=== PATIENT | male | born 1980 | race Caucasian/White ===

== ENCOUNTER 2016-09-15 02:10 | Emergency (ER) | payer MEDICAID, OTHER ==
[~2016-09-15] VITALS: Ht 172.7 cm; Wt 80.8 kg
[~2016-09-15 02:10] MED LIST: CLIN1CAP6 PO; OXYC1SOL5 PO; PROT40TA PO
[2016-09-15 02:18] VITALS: BP 135/97; PULSE 83; RESP 18; TEMP 97.7; O2SAT 97
[2016-09-15] MEDS ORDERED: SODIUM CHLOR 0.9% 1000 ML INJ 1,000 ML IV SCH (02:42)
[2016-09-15] MEDS ORDERED: SODIUM CHLORIDE 0.9% FLUSH 5 ML FLUSH IVF PRN (02:45)
[2016-09-15] MEDS ORDERED: ONDANSETRON HCL 4 MG/2 ML VIAL IVP ONE (02:45)
[2016-09-15] MEDS ORDERED: PANTOPRAZOLE SODIUM 40 MG VIAL IV PUSH ONE (02:45)
[2016-09-15] MEDS ORDERED: HYDROmorphone HCL PF 1 MG/ML VIAL IV PUSH ONE ×2 (02:45→06:00)
[2016-09-15 03:00] VITALS: BP 178/110; PULSE 72; RESP 20; O2SAT 98
[2016-09-15 03:03] LABS: BLOOD, URINE TRACE (NEG); GLUCOSE,URINE NEG (NEG); KETONE, URINE NEG (NEG); NITRITE,URINE NEG (NEG)
[2016-09-15 03:09] LABS: URINE COLOR YELLOW (YELLW/STRAW); WBC, URINE 0-2 /hpf (0-5)
[2016-09-15 03:09] LABS: AUTOMATED NEUTROPHIL # 5.4 TH/MM3 (1.8-7.7); BASOPHIL # 0.2 TH/MM3 (0-0.2); BASOPHIL % 1.6 % (0.0-2.0); EOSINOPHIL # 0.2 TH/MM3 (0-0.4); EOSINOPHIL % 1.5 % (0.0-4.0); HEMATOCRIT 49.1 % (39.0-51.0); HEMO FLAGS DIFF FINAL; LYMPH % 36.9 % (9.0-44.0); LYMPHOCYTE # 3.7 TH/MM3 (1.0-4.8); MEAN CELL VOLUME 96.1 FL (80.0-100.0); MEAN CORPUSCULAR HEMOGLOBIN 31.8 PG (27.0-34.0); MEAN CORPUSCULAR HGB CONC 33.1 % (32.0-36.0); MONO % 6.1 % (0.0-8.0); NEUT % 53.9 % (16.0-70.0); PLATELET COUNT 213 TH/MM3 (150-450); RED BLOOD COUNT 5.11 MIL/MM3 (4.50-5.90); RED CELL DISTRIBUTION WIDTH 13.1 % (11.6-17.2); WHITE BLOOD COUNT 10.1 TH/MM3 (4.0-11.0)
[2016-09-15 03:10] VITALS: BP 178/110; PULSE 72; RESP 20; O2SAT 97
[2016-09-15 03:10] LABS: COMMENT (UR) CULT NOT INDICATED; CULTURE IF INDICATED CULT NOT INDICATED; RBC, URINE 0-3 /hpf (0-3); SQUAMOUS EPITHELIAL CELL URINE 0-5 /hpf (0-5)
[2016-09-15 03:11] LABS: CHLORIDE 106 MEQ/L (98-107); SODIUM (NA) 140 MEQ/L (136-145)
[2016-09-15 03:15] LABS: ANION GAP 12 MEQ/L (5-15); BICARBONATE 21.6 MEQ/L (21.0-32.0)
[2016-09-15 03:16] LABS: BLOOD UREA NITROGEN 15 MG/DL (7-18)
[2016-09-15 03:18] LABS: ALT (GPT) 41 U/L (12-78); AST (GOT) 21 U/L (15-37); GLOMERULAR FILTRATION RATE 101 ML/MIN (>89)
[2016-09-15 03:20] LABS: TOTAL BILIRUBIN ADULT 0.7 MG/DL (0.2-1.0)
[2016-09-15 03:21] LABS: ALKALINE PHOSPHATASE 90 U/L (45-117)
[2016-09-15] MEDS ORDERED: KETOROLAC TROMETHAMINE 30 MG/ML (IVP) VIAL IV PUSH ONE (03:45)
[2016-09-15 04:12] VITALS: BP 156/65; PULSE 64; RESP 20; O2SAT 96
--- NOTE | 2016-09-15 04:48 | PD ---
HPI Chief Complaint: Abdominal Pain Time Seen by Provider: 02:42 Travel History International Travel<30 days: No Contact w/Intl Traveler<30days: No Traveled to known affect area: No History of Present Illness HPI 35-year-old male presents to the emergency department for complaint of 2 days of worsening abdominal pain. Patient states he recently underwent surgery for a Meckel's diverticulum. Patient is supposed to follow-up with his surgeon but has not been able to do so as he hasn't had the finances. Patient is also identified to have sludge in the gallbladder and underwent a hida scan. Patient is also supposed to see his surgeon regarding possible cholecystectomy. Patient's had no fever or chills. Patient has had nausea and vomiting. No hematemesis no coffee-ground emesis. No report of melena or hematochezia. Patient has been hospitalized in the [facility] for similar gastroenteritis intractable abdominal pain and has been evaluated for possible gastroparesis-like symptoms. Patient was evaluated by gastroenterology and identified to be noncompliant with medications. Patient also reports he has chronic recurrent pancreatitis due to remote history of alcohol use but states he has not had any alcohol use since October 2014. Patient rates his pain as severe. [facility] Past Medical History Narrative Medical Anxiety depression abnormal EKG with cardiac catheterization 2013 pancreatitis pneumothorax chest tube thoracostomy migraines pneumonia sleep apnea tobacco use alcohol use substance use nursing notes reviewed Arthritis: No Asthma: Yes ( A CHILD) Autoimmune Disease: No Blood Disorders: No Anxiety: Yes Depression: Yes Heart Rhythm Problems: No Cancer: No Cardiac Catheterization: Yes (05/01/14) Cardiovascular Problems: Yes (CATH 2015 ABNORMAL EKG ) High Cholesterol: No Chemotherapy: No Chest Pain: Yes Congestive Heart Failure: No COPD: No Cerebrovascular Accident: No Diabetes: No Diminished Hearing: No Deep Vein Thrombosis: Yes (LEFT ARM 2012) Endocrine: No Gastrointestinal Disorders: Yes GERD: Yes (GASTRITIS, GASTROPARESES) Glaucoma: No Genitourinary: No Headaches: Yes (MIGRAINES) Hepatitis: No Hiatal Hernia: No Hypertension: Yes Immune Disorder: No Implanted Vascular Access Dvce: No Kidney Stones: No Musculoskeletal: Yes Neurologic: Yes Psychiatric: Yes Reproductive: No Respiratory: Yes (HX OF CHEST TUBE FOR COLLAPSED LUNG) Immunizations Current: No Migraines: Yes Myocardial Infarction: No Pancreatitis: Yes Pneumonia: Yes Radiation Therapy: No Renal Failure: No Seizures: No Sleep Apnea: Yes Thyroid Disease: No Ulcer: No Past Surgical History Abdominal Surgery: Yes (MECKEL'S DIVERTICULUM JUN 2016) AICD: No Appendectomy: No Arteriovenous Shunt: No Cardiac Surgery: Yes (CARDIAC CATH (04/23).) Cholecystectomy: No Ear Surgery: No Endocrine Surgery: No Eye Surgery: No Genitourinary Surgery: No Gynecologic Surgery: No Insulin Pump: No Joint Replacement: No Neurologic Surgery: No Oral Surgery: No Pacemaker: No Thoracic Surgery: Yes (1983) Other Surgery: Yes (5 YRS OLD CENTRAL LINE FOR 8 MONTHS W/HYPERTROPHY) Social History Alcohol Use: Yes (QUIT IN OCT 2015) Tobacco Use: Yes (1 PACK EVERY 3 DAYS ) Substance Use: Yes ("Marijuana occasionally.") Allergies-Medications (Allergen,Severity, Reaction): Coded Allergies: Penicillin (Verified Allergy, Severe, Hallucinations, 09/15/16) Morphine (Verified Allergy, Intermediate, FLUSHING/BURNING OF SKIN, 09/15/16 ) Reported Meds & Prescriptions Reported Meds & Active Scripts Active Protonix (Pantoprazole Sodium) 40 Mg Tab 40 Mg PO DAILY 14 Days Clindamycin Hcl (Clindamycin HCl) 300 Mg Cap 300 Mg PO Q6HR 7 Days Oxycodone/Acetaminophen 5 mg/325 mg 5 mg/325 mg Tab 1 Tab PO Q6H PRN Review of Systems Except as stated in HPI: all other systems reviewed are Neg General / Constitutional: No: Fever, Chills HENT: No: Congestion Cardiovascular: No: Chest Pain or Discomfort Respiratory: No: Shortness of Breath Gastrointestinal: Positive: Nausea, Vomiting, Abdominal Pain Genitourinary: No: Flank Pain Musculoskeletal: No: Myalgias, Arthralgias Skin: No Rash Neurologic: No: Weakness Psychiatric: No: Anxiety Hematologic/Lymphatic: No: Lymph Node Enlargement Physical Exam Narrative Well-developed well-nourished male in no acute distress no respiratory distress GENERAL: SKIN: Warm and dry. HEAD: Normocephalic. EYES: No scleral icterus. No injection or drainage. NECK: Supple, trachea midline. No JVD or lymphadenopathy. CARDIOVASCULAR: Regular rate and rhythm without murmurs, gallops, or rubs. RESPIRATORY: Breath sounds equal bilaterally. No accessory muscle use. GASTROINTESTINAL: Abdomen soft, diffusely tender to palpation without guarding or rebound, nondistended. MUSCULOSKELETAL: No cyanosis, or edema. BACK: Nontender without obvious deformity. No CVA tenderness. Data Data Last Documented VS Vital Signs Date Time Temp Pulse Resp B/P Pulse Ox O2 Delivery O2 Flow Rate FiO2 09/15/16 06:00 50 20 152/81 97 09/15/16 02:18 97.7 Orders Complete Blood Count With Diff (09/15/16 02:42) Comprehensive Metabolic Panel (09/15/16 02:42) Lipase (09/15/16 02:42) Urinalysis - C+S If Indicated (09/15/16 02:42) Ct Abd/Pel W Iv Contrast(Rout) (09/15/16 02:42) Iv Access Insert/Monitor (09/15/16 02:42) Ecg Monitoring (09/15/16 02:42) Oximetry (09/15/16 02:42) Ondansetron Inj (Zofran Inj) (09/15/16 02:45) Sodium Chlor 0.9% 1000 Ml Inj (Ns 1000 M (09/15/16 02:42) Sodium Chloride 0.9% Flush (Ns Flush) (09/15/16 02:45) Hydromorphone Pf Inj (Dilaudid Pf Inj) (09/15/16 02:45) Pantoprazole Inj (Protonix Inj) (09/15/16 02:45) Ketorolac Inj (Toradol Inj) (09/15/16 03:45) Hydromorphone Pf Inj (Dilaudid Pf Inj) (09/15/16 06:00) Iohexol 350 Inj (Omnipaque 350 Inj) (09/15/16 06:47) Labs Laboratory Tests Test 09/15/16 09/15/16 02:23 02:58 Urine Color YELLOW Urine Turbidity CLEAR Urine pH 6.0 Urine Specific Dobson 1.016 Urine Protein NEG mg/dL Urine Glucose (UA) NEG mg/dL Urine Ketones NEG mg/dL Urine Occult Blood TRACE Urine Nitrite NEG Urine Bilirubin NEG Urine Leukocyte Esterase NEG Urine RBC 0-3 /hpf Urine WBC 0-2 /hpf Urine Squamous Epithelial 0-5 /hpf Cells Urine Bacteria NONE /hpf Microscopic Urinalysis Comment CULT NOT INDICATED White Blood Count 10.1 TH/MM3 Red Blood Count 5.11 MIL/MM3 Hemoglobin 16.3 GM/DL Hematocrit 49.1 % Mean Corpuscular Volume 96.1 FL Mean Corpuscular Hemoglobin 31.8 PG Mean Corpuscular Hemoglobin 33.1 % Concent Red Cell Distribution Width 13.1 % Platelet Count 213 TH/MM3 Mean Platelet Volume 9.6 FL Neutrophils (%) (Auto) 53.9 % Lymphocytes (%) (Auto) 36.9 % Monocytes (%) (Auto) 6.1 % Eosinophils (%) (Auto) 1.5 % Basophils (%) (Auto) 1.6 % Neutrophils # (Auto) 5.4 TH/MM3 Lymphocytes # (Auto) 3.7 TH/MM3 Monocytes # (Auto) 0.6 TH/MM3 Eosinophils # (Auto) 0.2 TH/MM3 Basophils # (Auto) 0.2 TH/MM3 CBC Comment DIFF FINAL Differential Comment Sodium Level 140 MEQ/L Potassium Level 4.0 MEQ/L Chloride Level 106 MEQ/L Carbon Dioxide Level 21.6 MEQ/L Anion Gap 12 MEQ/L Blood Urea Nitrogen 15 MG/DL Creatinine 0.85 MG/DL Estimat Glomerular Filtration 101 ML/MIN Rate Random Glucose 118 MG/DL Calcium Level 9.3 MG/DL Total Bilirubin 0.7 MG/DL Aspartate Amino Transf 21 U/L (AST/SGOT) Alanine Aminotransferase 41 U/L (ALT/SGPT) Alkaline Phosphatase 90 U/L Total Protein 8.3 GM/DL Albumin 4.4 GM/DL Lipase 163 U/L [facility] Medical Decision Making Medical Screen Exam Complete: Yes Emergency Medical Condition: Yes Medical Record Reviewed: Yes Interpretation(s) CBC is automated differential values in normal range Complete metabolic panel values are all in normal range except for random glucose of 118 mildly elevated Lipase is in normal range at [address] a/p CONCLUSION: Negative CT abdomen/pelvis with contrast. Rob Mccollum MD on September 15, 2016 at 6:51 Board Certified Radiologist. This report was verified electronically. Differential Diagnosis Gastroenteritis electrolyte disturbance dehydration gastroparesis biliary colic cholecystitis colitis bowel obstruction renal colic Narrative Course IV access obtained specimens collected and sent for resulting Laboratory values are found to all be within normal range; patient will be sent to CAT scan for ongoing abdominal pain that seems mentally responsive to administered medications; CT scanner at this facility is broken therefore be transferred to [facility] for imaging study Diagnosis Primary Impression: Abdominal pain Qualified Code: R10.10 - Pain of upper abdomen Additional Impression: Gastroenteritis Referrals: Primary Care Physician call for appointment Patient Instructions: General Instructions Additional Instructions: Follow clear liquid diet for next 12-24 hours advance as tolerated to bland/ Didier diet Follow-up with your primary care physician Use Zofran as prescribed as needed for nausea and/or vomiting No work times one day May use acetaminophen/Tylenol as needed for fever 100.4F or greater or for minor pain Recommend [id number] Prilosec or Zantac per package directions 14 days Med/Other Pt SpecificInfo: Prescription(s) given Scripts Ondansetron Odt (Zofran Odt)4 Mg Tab4 Mg SL Q6HR PRN (Nausea/Vomiting) #10 TAB Ref 0 Prov:Camille Rome MD 09/15/16 Disposition: 01 DISCHARGE HOME Condition: Stable Camille Rome MD Sep 15, 2016 04:48
[2016-09-15 05:00] VITALS: BP 140/73; PULSE 58; RESP 20; O2SAT 97
[2016-09-15 06:00] VITALS: BP 152/81; PULSE 50; RESP 20; O2SAT 97
[2016-09-15] MEDS ORDERED: IOHEXOL 350 MG/ML 10 ML VIAL (for RAD DIAG) IV ONE (06:47)
--- NOTE | 2016-09-15 06:54 | RADRPT ---
EXAM DATE/TIME: 09/15/2016 06:33 [facility] COMPARISON: CT ABDOMEN & PELVIS W CONTRAST, June 19, 2015, 13:46. INDICATIONS : Right upper quadrant pain and right flank pain. IV CONTRAST: 80 cc Omnipaque 350 (iohexol) IV ORAL CONTRAST: No oral contrast ingested. RADIATION DOSE: 6.60 CTDIvol (mGy) MEDICAL HISTORY : Hypertension. Gastroparesis. Pancreatitis.gastritis, SURGICAL HISTORY : meckel's diverticulum ENCOUNTER: Initial ACUITY: 1 day PAIN SCALE: 10/10 LOCATION: Right upper quadrant flank TECHNIQUE: Volumetric scanning of the abdomen and pelvis was performed. Using automated exposure control and ad justment of the mA and/or kV according to patient size, radiation dose was kept as low as reasonably achievable to obtain optimal diagnostic quality images. FINDINGS: LOWER LUNGS: The visualized lower lungs are clear. LIVER: Homogeneous density without lesion. There is no dilation of the biliary tree. No calcified gallston es. SPLEEN: Normal size without lesion. PANCREAS: Within normal limits. KIDNEYS: Normal in size and shape. There is no mass, stone or hydronephrosis. ADRENAL GLANDS: Within normal limits. VASCULAR: There is no aortic aneurysm. BOWEL/MESENTERY: The stomach, small bowel, and colon demonstrate no acute abnormality. The appendix is identified in the right lower quadrant and has a normal appearance. There is no free intraperitoneal air or fluid. ABDOMINAL WALL: Within normal limits. RETROPERITONEUM: There is no lymphadenopathy. BLADDER: No wall thickening or mass. REPRODUCTIVE: Within normal limits. INGUINAL: There is no lymphadenopathy or hernia. MUSCULOSKELETAL: Within normal limits for patient age. CONCLUSION: Negative CT abdomen/pelvis with contrast. Rob Mccollum MD on September 15, 2016 at 6:51 Board Certified Radiologist. This report was verified electronically.
[2016-09-15] MEDS ORDERED: ZOFR4TAB3 SL (07:06)
== END 2016-09-15 07:35 | disposition home or self-care (01) ==
LOC: PHED 02:10
DX: R10.10 Upper abdominal pain, unspecified (principal); K52.9 Noninfective gastroenteritis and colitis, unspecified; K21.9 Gastro-esophageal reflux disease without esophagitis; I10 Essential (primary) hypertension; K85.90 Acute pancreatitis without necrosis or infection, unspecified; F17.210 Nicotine dependence, cigarettes, uncomplicated; G47.30 Sleep apnea, unspecified; Z86.718 Personal history of other venous thrombosis and embolism
CPT/HCPCS: 74177; 80053; 81001; 83690; 85025; 96361; 96374; 96375; 96376; 99284; C9113; J1170; J1885; J2405; J7030; Q9967

== ENCOUNTER 2017-05-23 01:24 | Emergency (ER) | payer MEDICAID ==
[~2017-05-23] VITALS: Ht 172.7 cm; Wt 78.8 kg
[~2017-05-23 01:24] MED LIST changes: +ZOFR4TAB3 SL
[2017-05-23 01:36] VITALS: BP 185/87; PULSE 92; RESP 20; TEMP 97.8
[2017-05-23 01:40] VITALS: BP 169/85; PULSE 84; RESP 20; O2SAT 95
--- NOTE | 2017-05-23 01:53 | PD ---
HPI Chief Complaint: Chest Pain Time Seen by Provider: 01:52 Travel History International Travel<30 days: No Contact w/Intl Traveler<30days: No Traveled to known affect area: No History of Present Illness HPI Patient is a 36-year-old male with a history of recurrent pancreatitis presents emergency Department with "chest pain" which she localizes the right mid abdomen. Patient states been going on for the past 3-4 hours. States it feels like his pancreatitis is flared up on him. Denies any diarrhea or constipation. Patient states he has a history of gastritis as well. States normally he takes erythromycin Zofran Lortab and omeprazole at home but he's been out of all of his medications. States in addition he usually takes sucralfate when it flares. States the pain is sharp nonradiating associated with nausea and nonbilious nonbloody vomiting. PFSH Past Medical History Arthritis: No Asthma: Yes ( A CHILD) Autoimmune Disease: No Blood Disorders: No Anxiety: Yes Depression: Yes Heart Rhythm Problems: No Cancer: No Cardiac Catheterization: Yes (05/01/14) Cardiovascular Problems: Yes (CATH 2015 ABNORMAL EKG ) High Cholesterol: No Chemotherapy: No Chest Pain: Yes Congestive Heart Failure: No COPD: No Cerebrovascular Accident: No Diabetes: No Diminished Hearing: No Deep Vein Thrombosis: Yes (LEFT ARM 2012) Endocrine: No Gastrointestinal Disorders: Yes GERD: Yes (GASTRITIS, GASTROPARESES) Glaucoma: No Genitourinary: No Headaches: Yes (MIGRAINES) Hepatitis: No Hiatal Hernia: No Hypertension: Yes Immune Disorder: No Implanted Vascular Access Dvce: No Kidney Stones: No Musculoskeletal: Yes Neurologic: Yes Psychiatric: Yes Reproductive: No Respiratory: Yes (HX OF CHEST TUBE FOR COLLAPSED LUNG) Immunizations Current: No Migraines: Yes Myocardial Infarction: No Pancreatitis: Yes Pneumonia: Yes Radiation Therapy: No Renal Failure: No Seizures: No Sleep Apnea: Yes Thyroid Disease: No Ulcer: No Past Surgical History Abdominal Surgery: Yes (MECKEL'S DIVERTICULUM JUN 2016) AICD: No Appendectomy: No Arteriovenous Shunt: No Cardiac Surgery: Yes (CARDIAC CATH (04/23).) Cholecystectomy: No Ear Surgery: No Endocrine Surgery: No Eye Surgery: No Genitourinary Surgery: No Gynecologic Surgery: No Insulin Pump: No Joint Replacement: No Neurologic Surgery: No Oral Surgery: No Pacemaker: No Thoracic Surgery: Yes (1983) Other Surgery: Yes (5 YRS OLD CENTRAL LINE FOR 8 MONTHS W/HYPERTROPHY) Social History Alcohol Use: Yes (QUIT IN OCT 2015) Tobacco Use: Yes (1 PACK EVERY 3 DAYS ) Substance Use: Yes ("Marijuana occasionally.") Allergies-Medications (Allergen,Severity, Reaction): Coded Allergies: penicillin G (Verified Allergy, Severe, Hallucinations, 05/23/17) morphine (Verified Allergy, Intermediate, FLUSHING/BURNING OF SKIN, ) Reported Meds & Prescriptions Reported Meds & Active Scripts Active Sucralfate 1 Gram Tab 1 Gm PO TID on empty stomach Omeprazole 40 Mg Cap 40 Mg PO DAILY Zofran Odt (Ondansetron Odt) 4 Mg Tab 4 Mg SL Q6HR PRN Erythromycin Base 250 Mg Tab 250 Mg PO TIDAC 7 Days Zofran Odt (Ondansetron Odt) 4 Mg Tab 4 Mg SL Q6HR PRN Review of Systems Except as stated in HPI: all other systems reviewed are Neg Physical Exam Narrative GENERAL: Well-developed well-nourished minimal discomfort, nontoxic appearance. SKIN: Focused skin assessment warm/dry. HEAD: Atraumatic. Normocephalic. EYES: Pupils equal and round. No scleral icterus. No injection or drainage. ENT: No nasal bleeding or discharge. Mucous membranes pink and moist. NECK: Trachea midline. No JVD. CARDIOVASCULAR: Regular rate and rhythm. No murmur appreciated. RESPIRATORY: No accessory muscle use. Clear to auscultation. Breath sounds equal bilaterally. GASTROINTESTINAL: Abdomen soft, non-tender, nondistended. Hepatic and splenic margins not palpable. No rebound no percussive tenderness, normal active bowel sounds. MUSCULOSKELETAL: No obvious deformities. No clubbing. No cyanosis. No edema. NEUROLOGICAL: Awake and alert. No obvious cranial nerve deficits. Motor grossly within normal limits. Normal speech. PSYCHIATRIC: Appropriate mood and affect; insight and judgment normal. Data Data Last Documented VS Vital Signs Date Time Temp Pulse Resp B/P (MAP) Pulse Ox O2 Delivery O2 Flow Rate FiO2 05/23/17 04:12 60 20 144/83 (103) 100 05/23/17 03:39 Room Air 05/23/17 01:36 97.8 Orders Orders Chest, Pa & Lat (05/23/17 ) Electrocardiogram (05/23/17 ) Ckmb (Isoenzyme) Profile (05/23/17 01:52) Complete Blood Count With Diff (05/23/17 01:52) Comprehensive Metabolic Panel (05/23/17 01:52) Magnesium (Mg) (05/23/17 01:52) Prothrombin Time / Inr (Pt) (05/23/17 01:52) Act Partial Throm Time (Ptt) (05/23/17 01:52) Troponin I (05/23/17 01:52) Ecg Monitoring (05/23/17 01:52) Bilateral Bp Monitoring (05/23/17 01:52) Iv Access Insert/Monitor (05/23/17 01:52) Oximetry (05/23/17 01:52) Oxygen Administration (05/23/17 01:52) Sodium Chloride 0.9% Flush (Ns Flush) (05/23/17 02:00) Ketorolac Inj (Toradol Inj) (05/23/17 02:00) Ondansetron Inj (Zofran Inj) (05/23/17 02:00) Abdomen, Upright Only (05/23/17 ) Lipase (05/23/17 01:52) Al-Mag Hy-Si 40-40-4 Mg/Ml Liq (Mag-Al P (05/23/17 02:45) Lidocaine 2% Viscous (Xylocaine 2% Visco (05/23/17 02:45) Promethazine Inj (Phenergan Inj) (05/23/17 02:45) CKMB (05/23/17 02:20) CKMB% (05/23/17 02:20) Labs Laboratory Tests Test 05/23/17 02:20 White Blood Count 9.4 TH/MM3 Red Blood Count 4.72 MIL/MM3 Hemoglobin 15.6 GM/DL Hematocrit 45.3 % Mean Corpuscular Volume 96.0 FL Mean Corpuscular Hemoglobin 33.1 PG Mean Corpuscular Hemoglobin Concent 34.5 % Red Cell Distribution Width 13.0 % Platelet Count 184 TH/MM3 Mean Platelet Volume 9.7 FL Neutrophils (%) (Auto) 54.1 % Lymphocytes (%) (Auto) 35.1 % Monocytes (%) (Auto) 7.3 % Eosinophils (%) (Auto) 0.7 % Basophils (%) (Auto) 2.8 % Neutrophils # (Auto) 5.0 TH/MM3 Lymphocytes # (Auto) 3.3 TH/MM3 Monocytes # (Auto) 0.7 TH/MM3 Eosinophils # (Auto) 0.1 TH/MM3 Basophils # (Auto) 0.3 TH/MM3 CBC Comment DIFF FINAL Differential Comment Prothrombin Time 10.9 SEC Prothromb Time International Ratio 1.0 RATIO Activated Partial Thromboplast Time 25.7 SEC Blood Urea Nitrogen 11 MG/DL Creatinine 0.90 MG/DL Random Glucose 87 MG/DL Total Protein 8.1 GM/DL Albumin 4.3 GM/DL Calcium Level 9.1 MG/DL Magnesium Level 2.3 MG/DL Alkaline Phosphatase 84 U/L Aspartate Amino Transf (AST/SGOT) 18 U/L Alanine Aminotransferase (ALT/SGPT) 32 U/L Total Bilirubin 0.4 MG/DL Sodium Level 139 MEQ/L Potassium Level 3.8 MEQ/L Chloride Level 105 MEQ/L Carbon Dioxide Level 24.0 MEQ/L Anion Gap 10 MEQ/L Estimat Glomerular Filtration Rate 94 ML/MIN Total Creatine Kinase 133 U/L Creatine Kinase MB 2.2 NG/ML Troponin I LESS THAN 0.02 NG/ML Lipase 133 U/L MDM Medical Decision Making Medical Screen Exam Complete: Yes Emergency Medical Condition: Yes Differential Diagnosis Acute on chronic abdominal pain, gastritis, pancreatitis, ACS highly unlikely. Narrative Course Patient is a 36-year-old male presents emergency Department with abdominal pain. He told triage she was actually having chest pain but one question about this he states she's not actually having any chest pain. Initial workup CBC CMP and lipase troponin EKG chest x-ray and abdominal x-ray are reassuring. He was given multiple doses of Zofran, Phenergan, IV fluids. He is feeling better. I prescribed him multiple medications to go home with. He is stable for discharge. Discussed follow-up with a arson investigator and return to ED criteria. Diagnosis Primary Impression: Abdominal pain Qualified Codes: R10.84 - Generalized abdominal pain Referrals: Shahab Lazo MD [facility] Med/Other Pt SpecificInfo: Prescription(s) given Scripts Sucralfate (Sucralfate) 1 Gram Tab 1 GM PO TID for Duodenal ulcer, #90 TAB 0 Refills on empty stomach Prov: Jose Marte MD 9/13/17 Omeprazole (Omeprazole) 40 Mg Cap 40 MG PO DAILY, #30 CAP 0 Refills Prov: Jose aMrte MD 05/23/17 Ondansetron Odt (Zofran Odt) 4 Mg Tab 4 MG SL Q6HR Y for Nausea/Vomiting, #3020 TAB 0 Refills Prov: Jose Marte MD 05/23/17 Erythromycin Base (Erythromycin Base) 250 Mg Tab 250 MG PO TIDAC for Infection for 7 Days, TAB 0 Refills Prov: Jose Marte MD 05/23/17 Disposition: 01 DISCHARGE HOME Condition: Stable Jose Marte MD May 23, 2017 01:53
[2017-05-23] MEDS ORDERED: SODIUM CHLORIDE 0.9% FLUSH 10 ML FLUSH IVF PRN (02:00)
[2017-05-23] MEDS ORDERED: KETOROLAC TROMETHAMINE 30 MG/ML (IVP) VIAL IV PUSH ONE (02:00)
[2017-05-23] MEDS ORDERED: ONDANSETRON HCL 4 MG/2 ML VIAL IV PUSH ONE (02:00)
--- NOTE | 2017-05-23 02:08 | RADRPT ---
EXAM DATE/TIME: 05/23/2017 01:54 [facility] COMPARISON: CHEST PA & LAT, November 05, 2014, 14:40. INDICATIONS : Chest pain. MEDICAL HISTORY : Pancreatitis. Gastroesophageal reflux disease. SURGICAL HISTORY : None. ENCOUNTER: Initial ACUITY: 1 day PAIN SCORE: 8/10 LOCATION: Bilateral chest FINDINGS: PA and lateral views of the chest demonstrate the lungs to be symmetrically aerated without evidence of mass, infiltrate or effusion. The cardiomediastinal contours are unremarkable. Osseous structure s are intact. CONCLUSION: No acute disease. No significant change has occurred. Jc Pike MD on May 23, 2017 at 2:06 Board Certified Radiologist. This report was verified electronically.
--- NOTE | 2017-05-23 02:10 | RADRPT ---
EXAM DATE/TIME: 05/23/2017 01:58 [facility] COMPARISON: ABDOMEN UPRIGHT ONLY, November 07, 2014, 22:49. INDICATIONS : Upper abdominal pain. MEDICAL HISTORY : Pancreatitis. Gastroesophageal reflux disease. SURGICAL HISTORY : None. ENCOUNTER: Initial ACUITY: 1 day PAIN SCORE: 8/10 LOCATION: Bilateral upper quadrant FINDINGS: A single erect view of the abdomen demonstrates the lower lungs to be clear. No evidence of free int raperitoneal gas. The visualized bowel loops are unremarkable. CONCLUSION: 1. No acute findings. Jc Pike MD on May 23, 2017 at 2:07 Board Certified Radiologist. This report was verified electronically.
[2017-05-23 02:26] LABS: BASOPHIL # 0.3 TH/MM3 (0-0.2); BASOPHIL % 2.8 % (0.0-2.0); EOSINOPHIL # 0.1 TH/MM3 (0-0.4); EOSINOPHIL % 0.7 % (0.0-4.0); HEMATOCRIT 45.3 % (39.0-51.0); LYMPH % 35.1 % (9.0-44.0); LYMPHOCYTE # 3.3 TH/MM3 (1.0-4.8); MEAN CORPUSCULAR HEMOGLOBIN 33.1 PG (27.0-34.0); MEAN CORPUSCULAR HGB CONC 34.5 % (32.0-36.0); MONO % 7.3 % (0.0-8.0); NEUT % 54.1 % (16.0-70.0); PLATELET COUNT 184 TH/MM3 (150-450); RED BLOOD COUNT 4.72 MIL/MM3 (4.50-5.90); WHITE BLOOD COUNT 9.4 TH/MM3 (4.0-11.0)
[2017-05-23 02:28] VITALS: BP 108/85; PULSE 64; RESP 20; O2SAT 100
[2017-05-23 02:40] LABS: HEMO FLAGS DIFF FINAL
[2017-05-23 02:42] LABS: CHLORIDE 105 MEQ/L (98-107); POTASSIUM 3.8 MEQ/L (3.5-5.1); SODIUM (NA) 139 MEQ/L (136-145)
[2017-05-23] MEDS ORDERED: PROMETHAZINE INJ 25 MG/ML VIAL IM ONE (02:45)
[2017-05-23] MEDS ORDERED: LIDOCAINE VISCOUS 2% SOLN 15 ML UDC PO ONE (02:45)
[2017-05-23] MEDS ORDERED: ALUMINUM/MAGNESIUM/SIMETH 30 ML CUP PO ONE (02:45)
[2017-05-23 02:46] LABS: ANION GAP 10 MEQ/L (5-15); BLOOD UREA NITROGEN 11 MG/DL (7-18); MAGNESIUM 2.3 MG/DL (1.5-2.5)
[2017-05-23 02:49] LABS: ALT (GPT) 32 U/L (12-78); AST (GOT) 18 U/L (15-37); GLOMERULAR FILTRATION RATE 94 ML/MIN (>89)
[2017-05-23 02:50] LABS: TOTAL BILIRUBIN ADULT 0.4 MG/DL (0.2-1.0)
[2017-05-23 02:52] LABS: ALKALINE PHOSPHATASE 84 U/L (45-117); CREATINE KINASE 133 U/L (39-308)
[2017-05-23 02:56] LABS: APTT (PATIENT) 25.7 SEC (24.3-30.1); PROTHROMBIN TIME - PATIENT 10.9 SEC (9.8-11.6)
[2017-05-23 03:04] LABS: CKMB 2.2 NG/ML (0.5-3.6)
[2017-05-23 03:39] VITALS: BP_SYST 119; BP_SYST 125; BP_DIAS 72; BP_DIAS 83; PULSE 60; RESP 22; O2SAT 99
[2017-05-23] MEDS ORDERED: ERYT250T13 PO (04:01)
[2017-05-23] MEDS ORDERED: SUCR1TAB PO (04:01)
[2017-05-23] MEDS ORDERED: OMEP40CA2 PO (04:01)
[2017-05-23] MEDS ORDERED: ZOFR4TAB3 SL (04:01)
[2017-05-23 04:12] VITALS: BP 144/83
--- NOTE | 2017-05-23 21:23 | EKG ---
Date Performed: 05/23/2017 Time Performed: 01:40:10 PTAGE: 36 years EKG: Sinus rhythm ST ELEVATION, PROBABLY EARLY REPOLARIZATION NONSPECIFIC ST & T-WAVE ABNORMALITY BORDERLINE ECG PREVIOUS TRACING : 05/03/2016 11.53 Compared to prior tracing no significant change DOCTOR: Theresa Cortes Interpretating Date/Time 05/23/2017 21:21:50
== END 2017-05-23 04:39 | disposition home or self-care (01) ==
LOC: PHED 01:24
DX: R10.84 Generalized abdominal pain (principal); R11.2 Nausea with vomiting, unspecified; R94.31 Abnormal electrocardiogram [ECG] [EKG]; I10 Essential (primary) hypertension; G47.30 Sleep apnea, unspecified; F17.200 Nicotine dependence, unspecified, uncomplicated; Z87.19 Personal history of other diseases of the digestive system; Z87.09 Personal history of other diseases of the respiratory system; Z86.59 Personal history of other mental and behavioral disorders; Z86.79 Personal history of other diseases of the circulatory system; Z86.718 Personal history of other venous thrombosis and embolism; Z87.39 Personal history of other diseases of the musculoskeletal system and connective tissue; Z86.69 Personal history of other diseases of the nervous system and sense organs
CPT/HCPCS: 71020; 74000; 80053; 82550; 82552; 83690; 83735; 84484; 85025; 85610; 85730; 93005; 96374; 96375; 99285; J1885; J2405; J2550

== ENCOUNTER 2017-06-08 19:08 | Emergency (ER) | payer SELFPAY ==
[~2017-06-08 19:08] MED LIST changes: -CLIN1CAP6 PO; +ERYT250T13 PO; +OMEP40CA2 PO; -OXYC1SOL5 PO; -PROT40TA PO; +SUCR1TAB PO
[2017-06-08 19:09] VITALS: BP 142/79; PULSE 78; RESP 16; TEMP 97.9; O2SAT 98
[2017-06-08] MEDS ORDERED: SODIUM CHLORIDE 0.9% FLUSH 10 ML FLUSH IVF PRN (22:00)
[2017-06-08] MEDS ORDERED: ASPIRIN 325 MG TAB PO ONE (22:00)
--- NOTE | 2017-06-08 22:03 | PD ---
HPI Chief Complaint: Syncope/Near-Syncope Time Seen by Provider: 21:56 Travel History International Travel<30 days: No Contact w/Intl Traveler<30days: No Traveled to known affect area: No History of Present Illness HPI 36-year-old male presents to the emergency department for evaluation after having a syncopal episode at work earlier today. Patient states he went out to take a smoking break and woke up on the ground. Patient states other employees told him he "flopped around like a fish". Patient states he has never had any seizure or seizure-like activity. Patient now is complaining of chest tightness , dry cough, hematoma to the right parietal aspect of the skull. Patient denies any fever, chills, hematuria, dysuria. Patient states he has a history of gastritis and is chronically nauseous and vomits frequently. Patient denies any constipation or diarrhea. PFSH Past Medical History Arthritis: No Asthma: Yes ( A CHILD) Autoimmune Disease: No Blood Disorders: No Anxiety: Yes Depression: Yes Heart Rhythm Problems: No Cancer: No Cardiac Catheterization: Yes (05/01/14) Cardiovascular Problems: Yes (CATH 2015 ABNORMAL EKG ) High Cholesterol: No Chemotherapy: No Chest Pain: Yes Congestive Heart Failure: No COPD: No Cerebrovascular Accident: No Diabetes: No Diminished Hearing: No Deep Vein Thrombosis: Yes (LEFT ARM 2012) Endocrine: No Gastrointestinal Disorders: Yes GERD: Yes (GASTRITIS, GASTROPARESES) Glaucoma: No Genitourinary: No Headaches: Yes (MIGRAINES) Hepatitis: No Hiatal Hernia: No Hypertension: Yes Immune Disorder: No Implanted Vascular Access Dvce: No Kidney Stones: No Musculoskeletal: Yes Neurologic: Yes Psychiatric: Yes Reproductive: No Respiratory: Yes (HX OF CHEST TUBE FOR COLLAPSED LUNG) Immunizations Current: No Migraines: Yes Myocardial Infarction: No Pancreatitis: Yes Pneumonia: Yes Radiation Therapy: No Renal Failure: No Seizures: No Sleep Apnea: Yes Thyroid Disease: No Ulcer: No ?: Not Past Surgical History Abdominal Surgery: Yes ([facility] JUN 2016) AICD: No Appendectomy: No Arteriovenous Shunt: No Cardiac Surgery: Yes (CARDIAC CATH (04/23).) Cholecystectomy: No Ear Surgery: No Endocrine Surgery: No Eye Surgery: No Genitourinary Surgery: No Gynecologic Surgery: No Insulin Pump: No Joint Replacement: No Neurologic Surgery: No Oral Surgery: No Pacemaker: No Thoracic Surgery: Yes (1983) Other Surgery: Yes (3 YRS OLD CENTRAL LINE FOR 8 MONTHS W/HYPERTROPHY) Social History Alcohol Use: Yes (QUIT IN OCT 2015) Tobacco Use: Yes (1 PACK EVERY 3 DAYS ) Substance Use: Yes ("Marijuana occasionally.") Allergies-Medications (Allergen,Severity, Reaction): Coded Allergies: penicillin G (Verified Allergy, Severe, Hallucinations, 06/08/17) morphine (Verified Allergy, Intermediate, FLUSHING/BURNING OF SKIN, ) Reported Meds & Prescriptions Reported Meds & Active Scripts Active Review of Systems Except as stated in HPI: all other systems reviewed are Neg Physical Exam Narrative GENERAL: Well-developed well-nourished 36-year-old male that appears anxious and is crying. SKIN: Focused skin assessment warm/dry. HEAD: Atraumatic. Normocephalic. EYES: Pupils equal and round. No scleral icterus. No injection or drainage. ENT: No nasal bleeding or discharge. Mucous membranes pink and moist. NECK: Trachea midline. No JVD. CARDIOVASCULAR: Regular rate and rhythm. No murmur appreciated. RESPIRATORY: No accessory muscle use. Clear to auscultation. Breath sounds equal bilaterally. GASTROINTESTINAL: Abdomen soft, tender, nondistended. Hepatic and splenic margins not palpable. MUSCULOSKELETAL: No obvious deformities. No clubbing. No cyanosis. No edema. BACK: Right sided CVA tenderness. No rash. No point tenderness on palpation of the spine. NEUROLOGICAL: Awake and alert. No obvious cranial nerve deficits. Motor grossly within normal limits. Normal speech. PSYCHIATRIC: Anxious and crying. Data Data Last Documented VS Vital Signs Date Time Temp Pulse Resp B/P (MAP) Pulse Ox O2 Delivery O2 Flow Rate FiO2 06/08/17 19:09 97.9 78 16 142/79 (100) 98 Room Air Orders Orders Electrocardiogram (06/08/17 21:49) Basic Metabolic Panel (Bmp) (06/08/17 21:49) Complete Blood Count With Diff (06/08/17 21:49) Magnesium (Mg) (06/08/17 21:49) Prothrombin Time / Inr (Pt) (06/08/17 21:49) Act Partial Throm Time (Ptt) (06/08/17 21:49) Troponin I (06/08/17 21:49) Lipase (06/08/17 21:49) Chest, Single Ap (06/08/17 21:49) Ecg Monitoring (06/08/17 21:49) Bilateral Bp Monitoring (06/08/17 21:49) Iv Access Insert/Monitor (06/08/17 21:49) Oximetry (06/08/17 21:49) Oxygen Administration (06/08/17 21:49) Aspirin (Aspirin) (06/08/17 22:00) Sodium Chloride 0.9% Flush (Ns Flush) (06/08/17 22:00) Ct Brain W/O Iv Contrast(Rout) (06/08/17 ) Lorazepam Inj (Ativan Inj) (06/08/17 22:15) Urinalysis - C+S If Indicated (06/08/17 22:03) Labs Laboratory Tests Test 06/08/17 22:00 [facility] Medical Decision Making Medical Screen Exam Complete: Yes Emergency Medical Condition: Yes Medical Record Reviewed: Yes Differential Diagnosis Differential diagnoses include but aren't limited to ACS, electrolyte abnormality, ICH, anxiety, syncope Narrative Course 36-year-old male presents emergency department for evaluation after having a syncopal episode while at work. Patient placed on monitor, IV obtained and blood work sent. CBC, BMP, magnesium, PT/INR, troponin, lipase ordered and pending. EKG and chest x-ray ordered and pending. Brain CT without contrast ordered and pending. Chest x-ray shows no acute cardiopulmonary findings Brain CT is negative for any acute findings My attending, Dr Cunningham assumes care for this patient. Please see her documentation for further details and disposition Shireen Ramirez Jun 08, 2017 22:03
[2017-06-08] MEDS ORDERED: LORazepam 2 MG/ML VIAL IV PUSH ONE (22:15)
--- NOTE | 2017-06-08 22:18 | RADRPT ---
EXAM DATE/TIME: 06/08/2017 21:57 [facility] COMPARISON: CHEST PA & LAT, May 23, 2017, 1:54. INDICATIONS : Chest pain and shortness of breath. MEDICAL HISTORY : Hypertension. Gastroesophageal reflux disease. Pancreatitis. Asthma. SURGICAL HISTORY : None. ENCOUNTER: Initial ACUITY: 2 weeks PAIN SCORE: 9/10 LOCATION: Bilateral chest FINDINGS: A single view of the chest demonstrates the lungs to be symmetrically aerated without evidence of mas s, infiltrate or effusion. The cardiomediastinal contours are unremarkable. Osseous structures are intact. CONCLUSION: No evidence of acute cardiopulmonary disease. Fernando Cassidy MD on June 08, 2017 at 22:17 Board Certified Radiologist. This report was verified electronically.
--- NOTE | 2017-06-08 22:20 | RADRPT ---
EXAM DATE/TIME: 06/08/2017 22:13 [facility] COMPARISON: No previous studies available for comparison. INDICATIONS : Syncope. Cephalgia. RADIATION DOSE: 39.33 CTDIvol (mGy) MEDICAL HISTORY : Hypertension. Deep venous thrombosis. SURGICAL HISTORY : None. ENCOUNTER: Initial ACUITY: 1 day PAIN SCALE: 7/10 LOCATION: cranial TECHNIQUE: Multiple contiguous axial images were obtained of the head. Using automated exposure control and adj ustment of the mA and/or kV according to patient size, radiation dose was kept as low as reasonably a chievable to obtain optimal diagnostic quality images. DICOM format image data is available electro nically for review and comparison. FINDINGS: CEREBRUM: The ventricles are normal for age. No evidence of midline shift, mass lesion, hemorrhage or acute in farction. No extra-axial fluid collections are seen. POSTERIOR FOSSA: The cerebellum and brainstem are intact. The 4th ventricle is midline. The cerebellopontine angle i s unremarkable. EXTRACRANIAL: The visualized portion of the orbits is intact. SKULL: The calvaria is intact. No evidence of skull fracture. CONCLUSION: Negative noncontrast head CT. Fernando Cassidy MD on June 08, 2017 at 22:18 Board Certified Radiologist. This report was verified electronically.
[2017-06-08 22:47] LABS: ANION GAP 7 MEQ/L (5-15); BICARBONATE 23.5 MEQ/L (21.0-32.0); BLOOD UREA NITROGEN 22 MG/DL (7-18); CHLORIDE 106 MEQ/L (98-107); GLOMERULAR FILTRATION RATE 104 ML/MIN (>89); MAGNESIUM 2.4 MG/DL (1.5-2.5); POTASSIUM 4.8 MEQ/L (3.5-5.1); SODIUM (NA) 136 MEQ/L (136-145)
[2017-06-08 23:01] LABS: AUTOMATED NEUTROPHIL # 8.2 TH/MM3 (1.8-7.7); BASOPHIL # 0.1 TH/MM3 (0-0.2); BASOPHIL % 0.9 % (0.0-2.0); EOSINOPHIL # 0.2 TH/MM3 (0-0.4); EOSINOPHIL % 1.3 % (0.0-4.0); HEMATOCRIT 43.7 % (39.0-51.0); HEMO FLAGS DIFF FINAL; LYMPH % 29.5 % (9.0-44.0); LYMPHOCYTE # 3.8 TH/MM3 (1.0-4.8); MEAN CELL VOLUME 98.1 FL (80.0-100.0); MEAN CORPUSCULAR HEMOGLOBIN 33.6 PG (27.0-34.0); MEAN CORPUSCULAR HGB CONC 34.2 % (32.0-36.0); MONO % 5.6 % (0.0-8.0); NEUT % 62.7 % (16.0-70.0); PLATELET COUNT 303 TH/MM3 (150-450); RED BLOOD COUNT 4.46 MIL/MM3 (4.50-5.90); RED CELL DISTRIBUTION WIDTH 13.9 % (11.6-17.2)
[2017-06-08 23:14] LABS: APTT (PATIENT) 23.1 SEC (24.3-30.1); PROTHROMBIN TIME - PATIENT 10.7 SEC (9.8-11.6)
--- NOTE | 2017-06-08 23:36 | PD ---
Data Data Last Documented VS Vital Signs Date Time Temp Pulse Resp B/P (MAP) Pulse Ox O2 Delivery O2 Flow Rate FiO2 06/08/17 19:09 97.9 78 16 142/79 (100) 98 Room Air Orders Orders Electrocardiogram (06/08/17 21:49) Basic Metabolic Panel (Bmp) (06/08/17 21:49) Complete Blood Count With Diff (06/08/17 21:49) Magnesium (Mg) (06/08/17 21:49) Prothrombin Time / Inr (Pt) (06/08/17 21:49) Act Partial Throm Time (Ptt) (06/08/17 21:49) Troponin I (06/08/17 21:49) Lipase (06/08/17 21:49) Chest, Single Ap (06/08/17 21:49) Ecg Monitoring (06/08/17 21:49) Bilateral Bp Monitoring (06/08/17 21:49) Iv Access Insert/Monitor (06/08/17 21:49) Oximetry (06/08/17 21:49) Oxygen Administration (06/08/17 21:49) Aspirin (Aspirin) (06/08/17 22:00) Sodium Chloride 0.9% Flush (Ns Flush) (06/08/17 22:00) Ct Brain W/O Iv Contrast(Rout) (06/08/17 ) Lorazepam Inj (Ativan Inj) (06/08/17 22:15) Urinalysis - C+S If Indicated (06/08/17 22:03) Labs Laboratory Tests Test 06/08/17 22:00 06/08/17 22:50 Blood Urea Nitrogen 22 MG/DL Creatinine 0.83 MG/DL Random Glucose 81 MG/DL Calcium Level 9.5 MG/DL Magnesium Level 2.4 MG/DL Sodium Level 136 MEQ/L Potassium Level 4.8 MEQ/L Chloride Level 106 MEQ/L Carbon Dioxide Level 23.5 MEQ/L Anion Gap 7 MEQ/L Estimat Glomerular Filtration Rate 104 ML/MIN Troponin I LESS THAN 0.02 NG/ML Lipase 147 U/L White Blood Count 13.0 TH/MM3 Red Blood Count 4.46 MIL/MM3 Hemoglobin 15.0 GM/DL Hematocrit 43.7 % Mean Corpuscular Volume 98.1 FL Mean Corpuscular Hemoglobin 33.6 PG Mean Corpuscular Hemoglobin Concent 34.2 % Red Cell Distribution Width 13.9 % Platelet Count 303 TH/MM3 Mean Platelet Volume 10.6 FL Neutrophils (%) (Auto) 62.7 % Lymphocytes (%) (Auto) 29.5 % Monocytes (%) (Auto) 5.6 % Eosinophils (%) (Auto) 1.3 % Basophils (%) (Auto) 0.9 % Neutrophils # (Auto) 8.2 TH/MM3 Lymphocytes # (Auto) 3.8 TH/MM3 Monocytes # (Auto) 0.7 TH/MM3 Eosinophils # (Auto) 0.2 TH/MM3 Basophils # (Auto) 0.1 TH/MM3 CBC Comment DIFF FINAL Differential Comment Prothrombin Time 10.7 SEC Prothromb Time International Ratio 1.0 RATIO Activated Partial Thromboplast Time 23.1 SEC [facility] Supervised Visit with FOUZIA: Yes Interpretation(s) mild leukocytosis electrolytes within normal limits troponin normal lipase normal cxr: no acute process ct head: no acute process ekg: sinus bradycardia, no st changes Differential Diagnosis Seizure, syncope, electrolyte abnormality, intracranial hemorrhage, panic attack Narrative Course The history, exam, and medical decision-making in the associated midlevel provider note were completed with my assistance. I reviewed and agree with the findings presented. I attest that I had a [id number] encounter with the patient on the same day, and personally performed and documented my assessment and findings in the medical record. *My assessment and Findings: [-] This is a 36-year-old male who presents to the emergency department having an episode where when he was out for a smoke break he passed out and was witnessed by his colleagues to have shaking movements. The patient says that he remembers his legs moving involuntarily during this episode. He says he has a bruise on his head but I don't appreciate any palpable hematoma and he otherwise has a normal exam. He appears very anxious and tearful on arrival and he appears to be having a panic attack. EKG demonstrates some sinus bradycardia. Patient was admitted and June 2015 and was noted then to have bradycardia into the 40s as well and it was thought to be normal for his age. Labs were obtained which were all reassuring. I had a conversation with the patient. I offered him observation given his bradycardia but I told him I thought that this was likely normal and physiologic for him and I didn't think it was related to his episode. I suspect his episode was more related to anxiety. I recommended that he follow up as an outpatient with neurology as a precaution in the case that this was a seizure but I think it's unlikely given he was conscious for part of the episode. Patient would like to go home and I think that's reasonable. He was provided follow-up with his [facility]. Diagnosis Primary Impression: Syncope Qualified Codes: R55 - Syncope and collapse Referrals: Sam Camacho PhD [facility] Patient Instructions: General Instructions Additional Instruction: If you develop severe chest pain, shortness of breath, sweating, lightheadedness , dizziness or difficulty breathing return to the emergency department immediately. Followup with your primary care physician in 2-3 days if your symptoms are not resolved. Med/Other Pt SpecificInfo: No Change to Meds Disposition: 01 DISCHARGE HOME Condition: Stable Alis Cunningham MD Jun 08, 2017 23:36
--- NOTE | 2017-06-09 13:54 | EKG ---
Date Performed: 06/08/2017 Time Performed: 23:18:54 PTAGE: 36 years EKG: SINUS BRADYCARDIA EARLY REPOLARIZATION BORDERLINE ECG PREVIOUS TRACING : 06/08/2017 21.42 No significant change from previous tracing noted. DOCTOR: Juan Stack Interpretating Date/Time 06/09/2017 13:54:12
--- NOTE | 2017-06-09 13:55 | EKG ---
Date Performed: 06/08/2017 Time Performed: 21:42:31 PTAGE: 36 years EKG: Sinus rhythm ST ELEVATION, CONSIDER EARLY REPOLARIZATION PREVIOUS TRACING : 05/23/2017 01.40 No significant change from previous tracing noted. DOCTOR: Juan Stack Interpretating Date/Time 06/09/2017 13:54:35
== END 2017-06-09 00:06 | disposition home or self-care (01) ==
LOC: NEPC 19:08
DX: R55 Syncope and collapse (principal); I10 Essential (primary) hypertension; R00.1 Bradycardia, unspecified
CPT/HCPCS: 70450; 71010; 80048; 83690; 83735; 84484; 85025; 85610; 85730; 93005; 96374; 99285; J2060

== ENCOUNTER 2017-07-12 09:44 | Emergency (ER) | payer MEDICAID ==
[~2017-07-12] VITALS: Ht 177.8 cm; Wt 77.0 kg
[2017-07-12 10:00] VITALS: BP_SYST 142; BP_SYST 146; BP_DIAS 113; BP_DIAS 83; PULSE 92; RESP 22; TEMP 97.6; O2SAT 100
[2017-07-12 10:07] VITALS: BP 192/116; PULSE 112; RESP 22; TEMP 97.6; O2SAT 100
[2017-07-12] MEDS ORDERED: SODIUM CHLORIDE 0.9% FLUSH 10 ML FLUSH IVF PRN (10:15)
[2017-07-12] MEDS ORDERED: ASPIRIN 81 MG CHEW TAB PO ONE (10:15)
[2017-07-12] MEDS ORDERED: SODIUM CHLORID 0.9% 500 ML INJ 500 ML IV ONE (10:15)
[2017-07-12] MEDS ORDERED: ONDANSETRON HCL 4 MG/2 ML VIAL IV PUSH ONE (10:15)
[2017-07-12] MEDS ORDERED: HYDROmorphone HCL PF 1 MG/ML VIAL IV PUSH ONE (10:15)
--- NOTE | 2017-07-12 10:20 | PD ---
HPI Chief Complaint: Chest Pain Time Seen by Provider: 10:00 Travel History International Travel<30 days: No Contact w/Intl Traveler<30days: No Traveled to known affect area: No History of Present Illness HPI The patient is a 36-year-old male who presents to the emergency department for chest pain and right lower extremity swelling. The patient notes a one-week history of right lower extremity edema and pain, therefore, he stopped running. However, the pain and swelling has been persistent. He now complains of anterior left-sided chest pain that is sharp, pleuritic, but constant. The pain is worse with inspiration, he has associated shortness of breath, but denies any nausea or vomiting. The patient states she does have a history of DVT in the left upper extremity was seen at the [facility] one month ago, he states they wanted to admit him for syncope, however , he had worked the next day and subsequently went home. The patient states he was at work earlier today when symptoms started. He denies any known history of pulmonary embolism. The patient underwent cardiac catheterization 3 years ago which was negative by Dr. Parra. The patient does have a history tobacco use, denies any history of illicit drug use or alcohol use. Symptoms are moderate without any alleviating or exacerbating factors. PFSH Past Medical History Hx Anticoagulant Therapy: No Arthritis: No Asthma: Yes ( A CHILD) Autoimmune Disease: No Blood Disorders: No Anxiety: Yes Depression: Yes Heart Rhythm Problems: No Cancer: No Cardiac Catheterization: Yes (05/01/14) Cardiovascular Problems: Yes High Cholesterol: No Chemotherapy: No Chest Pain: Yes Congestive Heart Failure: No COPD: No Cerebrovascular Accident: No Diabetes: No Diminished Hearing: No Deep Vein Thrombosis: Yes (LEFT ARM 2012) Endocrine: No Gastrointestinal Disorders: Yes GERD: Yes (GASTRITIS, GASTROPARESES) Glaucoma: No Genitourinary: No Headaches: Yes (MIGRAINES) Hepatitis: No Hiatal Hernia: No Hypertension: Yes Immune Disorder: No Implanted Vascular Access Dvce: No Kidney Stones: No Musculoskeletal: Yes Neurologic: Yes Psychiatric: Yes Reproductive: No Respiratory: No Immunizations Current: No Migraines: Yes Myocardial Infarction: No Pancreatitis: Yes Pneumonia: Yes Radiation Therapy: No Renal Failure: No Seizures: No Sleep Apnea: Yes Thyroid Disease: No Ulcer: No Tetanus Vaccination: > 5 Years Influenza Vaccination: No Past Surgical History Abdominal Surgery: Yes (MECKEL'S DIVERTICULUM JUN 2016) AICD: No Appendectomy: No Arteriovenous Shunt: No Cardiac Surgery: Yes (CARDIAC CATH (04/23).) Cholecystectomy: No Ear Surgery: No Endocrine Surgery: No Eye Surgery: No Genitourinary Surgery: No Gynecologic Surgery: No Hysterectomy: No Insulin Pump: No Joint Replacement: No Neurologic Surgery: No Oral Surgery: No Pacemaker: No Thoracic Surgery: Yes (1983) Other Surgery: Yes (3 YRS OLD CENTRAL LINE FOR 8 MONTHS W/HYPERTROPHY) Social History Alcohol Use: Yes (QUIT IN OCT 2015) Tobacco Use: Yes (1 PACK EVERY 3 DAYS ) Substance Use: Yes ("Marijuana occasionally.") Allergies-Medications (Allergen,Severity, Reaction): Coded Allergies: penicillin G (Verified Allergy, Severe, Hallucinations, 07/12/17) morphine (Verified Allergy, Intermediate, FLUSHING/BURNING OF SKIN, ) Reported Meds & Prescriptions Reported Meds & Active Scripts Active No Active Prescriptions or Reported Medications Review of Systems Except as stated in HPI: all other systems reviewed are Neg General / Constitutional: No: Fever Cardiovascular: Positive: Chest Pain or Discomfort, Tachycardia, No: Diaphoresis, Dyspnea on exertion Respiratory: Positive: Shortness of Breath, Pleuritic Pain Gastrointestinal: No: Nausea, Vomiting, Abdominal Pain Musculoskeletal: Positive: Edema Neurologic: No: Dizziness Physical Exam Narrative GENERAL: Awake, alert, nontoxic-appearing 36-year-old male who appears his stated age and appears somewhat anxious. SKIN: Focused skin assessment warm/dry. HEAD: Atraumatic. Normocephalic. EYES: Pupils equal and round. No scleral icterus. No injection or drainage. ENT: No nasal bleeding or discharge. Mucous membranes pink and moist. NECK: Trachea midline. No JVD. CARDIOVASCULAR: Regular, tachycardic with a heart rate of 102.. RESPIRATORY: No accessory muscle use. Clear to auscultation. Breath sounds equal bilaterally. GASTROINTESTINAL: Abdomen soft, non-tender, nondistended. No rebound tenderness. MUSCULOSKELETAL: No obvious deformities. No clubbing. No cyanosis. No edema. Calves are soft bilaterally. There is no obvious swelling of the right leg when compared to the left visually. Positive distal pulses. NEUROLOGICAL: Awake and alert. No obvious cranial nerve deficits. Motor grossly within normal limits. Normal speech. PSYCHIATRIC: Anxious, insight and judgment appear normal. Data Data Last Documented VS Vital Signs Date Time Temp Pulse Resp B/P (MAP) Pulse Ox O2 Delivery O2 Flow Rate FiO2 07/12/17 10:10 100 Nasal Cannula 2.00 07/12/17 10:07 97.6 112 22 192/116 (141) Orders Orders Electrocardiogram (07/12/17 10:11) Ckmb (Isoenzyme) Profile (07/12/17 10:11) Complete Blood Count With Diff (07/12/17 10:11) Comprehensive Metabolic Panel (07/12/17 10:11) Magnesium (Mg) (07/12/17 10:11) Prothrombin Time / Inr (Pt) (07/12/17 10:11) Act Partial Throm Time (Ptt) (07/12/17 10:11) Troponin I (07/12/17 10:11) Chest, Single Ap (07/12/17 10:11) Ecg Monitoring (07/12/17 10:11) Bilateral Bp Monitoring (07/12/17 10:11) Iv Access Insert/Monitor (07/12/17 10:11) Oximetry (07/12/17 10:11) Oxygen Administration (07/12/17 10:11) Aspirin Chew (Aspirin Chew) (07/12/17 10:15) Sodium Chloride 0.9% Flush (Ns Flush) (07/12/17 10:15) Sodium Chlorid 0.9% 500 Ml Inj (Ns 500 M (07/12/17 10:15) Ct Pulmonary Angiogram (07/12/17 10:11) Us Leg Venous Doppler (07/12/17 ) Hydromorphone Pf Inj (Dilaudid Pf Inj) (07/12/17 10:15) Ondansetron Inj (Zofran Inj) (07/12/17 10:15) CKMB (07/12/17 10:20) CKMB% (07/12/17 10:20) Iohexol 350 Inj (Omnipaque 350 Inj) (07/12/17 11:35) Hydromorphone Pf Inj (Dilaudid Pf Inj) (07/12/17 12:00) Labs Laboratory Tests Test 07/12/17 10:20 White Blood Count 14.1 TH/MM3 Red Blood Count 4.76 MIL/MM3 Hemoglobin 15.2 GM/DL Hematocrit 45.7 % Mean Corpuscular Volume 95.9 FL Mean Corpuscular Hemoglobin 31.8 PG Mean Corpuscular Hemoglobin Concent 33.2 % Red Cell Distribution Width 12.6 % Platelet Count 209 TH/MM3 Mean Platelet Volume 8.5 FL Neutrophils (%) (Auto) 69.2 % Lymphocytes (%) (Auto) 21.2 % Monocytes (%) (Auto) 7.5 % Eosinophils (%) (Auto) 0.2 % Basophils (%) (Auto) 1.9 % Neutrophils # (Auto) 9.7 TH/MM3 Lymphocytes # (Auto) 3.0 TH/MM3 Monocytes # (Auto) 1.1 TH/MM3 Eosinophils # (Auto) 0.0 TH/MM3 Basophils # (Auto) 0.3 TH/MM3 CBC Comment DIFF FINAL Differential Comment Prothrombin Time 11.1 SEC Prothromb Time International Ratio 1.0 RATIO Activated Partial Thromboplast Time 24.6 SEC Blood Urea Nitrogen 12 MG/DL Creatinine 0.93 MG/DL Random Glucose 111 MG/DL Total Protein 8.2 GM/DL Albumin 4.7 GM/DL Calcium Level 9.3 MG/DL Magnesium Level 1.7 MG/DL Alkaline Phosphatase 79 U/L Aspartate Amino Transf (AST/SGOT) 18 U/L Alanine Aminotransferase (ALT/SGPT) 30 U/L Total Bilirubin 0.7 MG/DL Sodium Level 138 MEQ/L Potassium Level 3.8 MEQ/L Chloride Level 102 MEQ/L Carbon Dioxide Level 23.3 MEQ/L Anion Gap 13 MEQ/L Estimat Glomerular Filtration Rate 91 ML/MIN Total Creatine Kinase 154 U/L Creatine Kinase MB 1.9 NG/ML Troponin I LESS THAN 0.02 NG/ML MDM Medical Decision Making Medical Screen Exam Complete: Yes Emergency Medical Condition: Yes Medical Record Reviewed: Yes Interpretation(s) EKG reveals normal sinus rhythm with a rate in 97. Wavy baseline. No ischemic changes or ectopy noted. Laboratory Tests Test 07/12/17 10:20 White Blood Count 14.1 TH/MM3 Red Blood Count 4.76 MIL/MM3 Hemoglobin 15.2 GM/DL Hematocrit 45.7 % Mean Corpuscular Volume 95.9 FL Mean Corpuscular Hemoglobin 31.8 PG Mean Corpuscular Hemoglobin Concent 33.2 % Red Cell Distribution Width 12.6 % Platelet Count 209 TH/MM3 Mean Platelet Volume 8.5 FL Neutrophils (%) (Auto) 69.2 % Lymphocytes (%) (Auto) 21.2 % Monocytes (%) (Auto) 7.5 % Eosinophils (%) (Auto) 0.2 % Basophils (%) (Auto) 1.9 % Neutrophils # (Auto) 9.7 TH/MM3 Lymphocytes # (Auto) 3.0 TH/MM3 Monocytes # (Auto) 1.1 TH/MM3 Eosinophils # (Auto) 0.0 TH/MM3 Basophils # (Auto) 0.3 TH/MM3 CBC Comment DIFF FINAL Differential Comment Prothrombin Time 11.1 SEC Prothromb Time International Ratio 1.0 RATIO Activated Partial Thromboplast Time 24.6 SEC Blood Urea Nitrogen 12 MG/DL Creatinine 0.93 MG/DL Random Glucose 111 MG/DL Total Protein 8.2 GM/DL Albumin 4.7 GM/DL Calcium Level 9.3 MG/DL Magnesium Level 1.7 MG/DL Alkaline Phosphatase 79 U/L Aspartate Amino Transf (AST/SGOT) 18 U/L Alanine Aminotransferase (ALT/SGPT) 30 U/L Total Bilirubin 0.7 MG/DL Sodium Level 138 MEQ/L Potassium Level 3.8 MEQ/L Chloride Level 102 MEQ/L Carbon Dioxide Level 23.3 MEQ/L Anion Gap 13 MEQ/L Estimat Glomerular Filtration Rate 91 ML/MIN Total Creatine Kinase 154 U/L Creatine Kinase MB 1.9 NG/ML Troponin I LESS THAN 0.02 NG/ML CT pulmonary angiogram reveals no evidence of pulmonary embolism. No acute pulmonary infiltrates. Chest x-ray reveals normal examination for patient of this age. No significant change has occurred. Ultrasound of the right leg reveals no evidence of DVT. Differential Diagnosis Differential diagnosis includes pulmonary embolism, acute coronary syndrome, DVT , aortic dissection, pneumonia, STEMI, hypertensive urgency, hypertensive emergency, anxiety. Narrative Course IV was established, labs are drawn and sent, and the patient was placed on cardiac telemetry monitoring and continuous pulse oximetry monitoring. EKG was ordered and interpreted. Ultrasound of the right lower extremity was ordered. CT pulmonary angiogram was ordered to rule out pulmonary embolism. The patient was administered Dilaudid, aspirin, Zofran, and IV fluids. I reviewed the patient's EMR, he had a negative cardiac catheterization performed December 30, [address] Parra which was negative. He also had a CTA of the thorax at that time which was negative. Chest x-ray was unremarkable. White count is minimally elevated at 14.1, troponin and CPK are within normal limits. Ultrasound of the right lower extremity is negative. The patient's blood pressure came down into the 150s/70s, patient still had mild discomfort. Therefore, patient was administered another dose of Dilaudid 0.5 mg intravenously. I do not believe the patient's pain is cardiac in origin, negative catheter 3 years ago a negative troponin and pain is been ongoing for greater than 3 hours. The patient is advised to follow-up with the [facility] clinic. Diagnosis Primary Impression: Atypical chest pain Referrals: [facility] call for appointment Patient Instructions: General Instructions Additional Instructions: Follow-up with the health clinic. Please provide the patient a copy of his CT results and lab results at discharge. Return if symptoms worsen or progress. Scripts No Active Prescriptions or Reported Meds Disposition: 01 DISCHARGE HOME Condition: Stable Reuben Coleman MD Jul 12, 2017 10:20
[2017-07-12 10:29] LABS: AUTOMATED NEUTROPHIL # 9.7 TH/MM3 (1.8-7.7); BASOPHIL # 0.3 TH/MM3 (0-0.2); BASOPHIL % 1.9 % (0.0-2.0); EOSINOPHIL % 0.2 % (0.0-4.0); HEMATOCRIT 45.7 % (39.0-51.0); HEMO FLAGS DIFF FINAL; LYMPH % 21.2 % (9.0-44.0); MEAN CELL VOLUME 95.9 FL (80.0-100.0); MEAN CORPUSCULAR HEMOGLOBIN 31.8 PG (27.0-34.0); MEAN CORPUSCULAR HGB CONC 33.2 % (32.0-36.0); MONO % 7.5 % (0.0-8.0); NEUT % 69.2 % (16.0-70.0); PLATELET COUNT 209 TH/MM3 (150-450); RED BLOOD COUNT 4.76 MIL/MM3 (4.50-5.90); RED CELL DISTRIBUTION WIDTH 12.6 % (11.6-17.2); WHITE BLOOD COUNT 14.1 TH/MM3 (4.0-11.0)
[2017-07-12 10:36] LABS: CHLORIDE 102 MEQ/L (98-107); POTASSIUM 3.8 MEQ/L (3.5-5.1); SODIUM (NA) 138 MEQ/L (136-145)
--- NOTE | 2017-07-12 10:38 | RADRPT ---
EXAM DATE/TIME: 07/12/2017 10:23 [facility] COMPARISON: CHEST SINGLE AP, June 08, 2017, 21:57. INDICATIONS : Chest pain, short of breath. MEDICAL HISTORY : Hypertension. Gastroesophageal reflux disease. Pancreatitis. asthma SURGICAL HISTORY : None. ENCOUNTER: Initial ACUITY: 1 day PAIN SCORE: 10/10 LOCATION: Bilateral chest FINDINGS: A single view of the chest demonstrates the lungs to be symmetrically aerated without evidence of mas s, infiltrate or effusion. The cardiomediastinal contours are unremarkable. Osseous structures are intact. CONCLUSION: Normal examination for a patient of this age. No significant change has occurred. Andres Green MD on July 12, 2017 at 10:37 Board Certified Radiologist. This report was verified electronically.
[2017-07-12 10:39] LABS: ANION GAP 13 MEQ/L (5-15); APTT (PATIENT) 24.6 SEC (24.3-30.1); BICARBONATE 23.3 MEQ/L (21.0-32.0); MAGNESIUM 1.7 MG/DL (1.5-2.5); PROTHROMBIN TIME - PATIENT 11.1 SEC (9.8-11.6)
[2017-07-12 10:42] LABS: ALT (GPT) 30 U/L (12-78); AST (GOT) 18 U/L (15-37); BLOOD UREA NITROGEN 12 MG/DL (7-18)
[2017-07-12 10:43] LABS: GLOMERULAR FILTRATION RATE 91 ML/MIN (>89)
[2017-07-12 10:44] LABS: TOTAL BILIRUBIN ADULT 0.7 MG/DL (0.2-1.0)
[2017-07-12 10:45] LABS: ALKALINE PHOSPHATASE 79 U/L (45-117); CREATINE KINASE 154 U/L (39-308)
[2017-07-12 10:57] LABS: CKMB 1.9 NG/ML (0.5-3.6)
--- NOTE | 2017-07-12 11:29 | RADRPT ---
EXAM DATE/TIME: 07/12/2017 11:05 [facility] COMPARISON: No previous studies available for comparison. INDICATIONS : Right leg swelling and pain. MEDICAL HISTORY : Hypertension. Deep venous thrombosis. Gastroesophageal reflux disease. Pneumonia. Sleep apnea. Marsh creatitis. Gastritis. Gastroparesis. Meckel's diverticulum. SURGICAL HISTORY : Achilles tendon repair. Cardiac cath. ENCOUNTER: Initial ACUITY: 3 days PAIN SCORE: 8/10 LOCATION: Right leg. TECHNIQUE: Venous ultrasound of the leg was performed from the inguinal ligament to the proximal calf. Real-mingo e, color Doppler and spectral tracing, compression and augmentation techniques were used. FINDINGS: There is normal compressibility of the deep venous system from the inguinal region to the proximal ca lf. No echogenic clot is seen in the lumen of the common femoral, femoral, popliteal, and posterior tibial veins. There is a normal response of the venous system to proximal and distal augmentation an d respiration. CONCLUSION: No evidence of DVT. Andres Green MD on July 12, 2017 at 11:27 Board Certified Radiologist. This report was verified electronically.
[2017-07-12] MEDS ORDERED: IOHEXOL 350 MG/ML 10 ML VIAL (for RAD DIAG) IVCONTRAST ONE (11:35)
--- NOTE | 2017-07-12 11:48 | RADRPT ---
EXAM DATE/TIME: 07/12/2017 11:29 [facility] COMPARISON: No previous studies available for comparison. INDICATIONS : Left pleuritic chest pain with tachycardia. Right leg swelling. IV CONTRAST: 75 cc Omnipaque 350 (iohexol) IV RADIATION DOSE: 13.68 CTDIvol (mGy) MEDICAL HISTORY : Deep venous thrombosis. Gastroesophageal reflux disease. Cardiovascular diseasePancreatitis. Hyperte nsion. Asthma. SURGICAL HISTORY : None. ENCOUNTER: Initial ACUITY: 1 day PAIN SCALE: 8/10 LOCATION: Left chest TECHNIQUE: Volumetric scanning of the chest was performed using a pulmonary embolism protocol MIP images were re constructed. Using automated exposure control and adjustment of the mA and/or kV according to patien t size, radiation dose was kept as low as reasonably achievable to obtain optimal diagnostic quality images. DICOM format image data is available electronically for review and comparison. Follow-up recommendations for detected pulmonary nodules are based at a minimum on nodule size and pa tient risk factors according to Fleischner Society Guidelines. FINDINGS: PULMONARY ARTERIES: No filling defects are seen in the pulmonary arteries through the segmental level. LUNGS: There is no consolidation or pneumothorax . No concerning pulmonary nodule is visualized. PLEURAE: There is no pleural thickening or pleural effusion. MEDIASTINUM: There is good visualization of the great vessels of the middle mediastinum. No evidence of mediastin al or hilar adenopathy/mass. MUSCULOSKELETAL: Within normal limits for patient age. MISCELLANEOUS: The visualized upper abdominal organs demonstrate no acute abnormality. CONCLUSION: 1. No evidence of pulmonary embolism. 2. No acute pulmonary infiltrates. Andres Green MD on July 12, 2017 at 11:45 Board Certified Radiologist. This report was verified electronically.
[2017-07-12] MEDS ORDERED: HYDROmorphone HCL PF 0.5 MG/0.5 ML SYRINGE IV PUSH ONE (12:00)
[2017-07-12 12:11] VITALS: BP_SYST 68; PULSE 63; RESP 16; O2SAT 98
[2017-07-12 12:39] VITALS: RESP 16
[2017-07-12 12:50] VITALS: BP 138/86
--- NOTE | 2017-07-12 16:22 | EKG ---
Date Performed: 07/12/2017 Time Performed: 10:04:20 PTAGE: 36 years EKG: Sinus rhythm When compared to previous tracing, rate has increased Significantly. NORMAL ECG PREVIOUS TRACING : 06/08/2017 23.18 DOCTOR: Vlad Mauricio Interpretating Date/Time 07/12/2017 16:21:38
== END 2017-07-12 12:52 | disposition home or self-care (01) ==
LOC: PHED 09:44
DX: R07.89 Other chest pain (principal); M79.89 Other specified soft tissue disorders; K31.84 Gastroparesis; F17.200 Nicotine dependence, unspecified, uncomplicated; R00.0 Tachycardia, unspecified
CPT/HCPCS: 71010; 71275; 80053; 82550; 82552; 83735; 84484; 85025; 85610; 85730; 93005; 93971; 96361; 96374; 96375; 96376; 99285; J1170; J2405; J7040; Q9967

== ENCOUNTER 2017-09-05 17:11 | Emergency (ER) | payer MEDICAID ==
[~2017-09-05] VITALS: Ht 172.7 cm; Wt 80.0 kg
[2017-09-05] MEDS ORDERED: ASPIRIN 81 MG CHEW TAB PO ONE (17:15)
[2017-09-05 17:16] VITALS: BP 144/90; PULSE 81; RESP 24; TEMP 97.5; O2SAT 98
--- NOTE | 2017-09-05 17:55 | RADRPT ---
EXAM DATE/TIME: 09/05/2017 17:44 [facility] COMPARISON: CT PULMONARY ANGIOGRAM, July 12, 2017, 11:29. CHEST PA & LAT, May 23, 2017, 1:54. INDICATIONS : Chest pain for 3 days MEDICAL HISTORY : None. SURGICAL HISTORY : None. ENCOUNTER: Initial ACUITY: 1 day PAIN SCORE: 10/10 LOCATION: Bilateral chest FINDINGS: No new focal pleural or parenchymal opacities. Cardiomediastinal contours are within normal limits. B medina thorax is intact. CONCLUSION: 1. No acute abnormality or significant interval change. Lucas Hernandez MD on September 05, 2017 at 17:52 Board Certified Radiologist. This report was verified electronically.
[2017-09-05 18:03] LABS: BICARBONATE 20.3 MEQ/L (21.0-32.0); BLOOD UREA NITROGEN 19 MG/DL (7-18); CHLORIDE 107 MEQ/L (98-107); CREATININE 0.83 MG/DL (0.60-1.30); GLOMERULAR FILTRATION RATE 104 ML/MIN (>89); GLUCOSE,RANDOM 98 MG/DL (74-106); LIPASE 165 U/L (73-393); SODIUM (NA) 136 MEQ/L (136-145)
[2017-09-05 18:06] LABS: TROPONIN I LESS THAN 0.02 NG/ML (0.02-0.05)
[2017-09-05 18:14] VITALS: BP 132/72; PULSE 64; RESP 20; O2SAT 99
[2017-09-05 18:44] VITALS: BP_SYST 126; BP_SYST 132; BP_DIAS 70; BP_DIAS 72; PULSE 64; RESP 21; O2SAT 99
[2017-09-05 18:59] LABS: AUTOMATED NEUTROPHIL # 6.1 TH/MM3 (1.8-7.7); BASOPHIL # 0.1 TH/MM3 (0-0.2); BASOPHIL % 0.8 % (0.0-2.0); EOSINOPHIL # 0.2 TH/MM3 (0-0.4); EOSINOPHIL % 1.5 % (0.0-4.0); HEMATOCRIT 43.5 % (39.0-51.0); HEMOGLOBIN 15.2 GM/DL (13.0-17.0); LYMPH % 32.4 % (9.0-44.0); LYMPHOCYTE # 3.4 TH/MM3 (1.0-4.8); MEAN CORPUSCULAR HEMOGLOBIN 34.2 PG (27.0-34.0); MEAN CORPUSCULAR HGB CONC 34.9 % (32.0-36.0); MEAN PLATELET VOLUME 9.9 FL (7.0-11.0); MONO % 7.9 % (0.0-8.0); MONOCYTE # 0.8 TH/MM3 (0-0.9); NEUT % 57.4 % (16.0-70.0); PLATELET COUNT 197 TH/MM3 (150-450); RED BLOOD COUNT 4.43 MIL/MM3 (4.50-5.90); RED CELL DISTRIBUTION WIDTH 13.7 % (11.6-17.2); WHITE BLOOD COUNT 10.6 TH/MM3 (4.0-11.0)
[2017-09-05 19:07] LABS: PROTHROMBIN TIME - PATIENT 10.1 SEC (9.8-11.6)
--- NOTE | 2017-09-05 19:13 | PD ---
HPI Chief Complaint: Chest Pain Time Seen by Provider: 19:12 Travel History International Travel<30 days: No Contact w/Intl Traveler<30days: No Traveled to known affect area: No History of Present Illness HPI 36-year-old male with PMH of gastroparesis presents to the ED for evaluation of sudden onset 10/10 left-sided pinching chest pain. Described as cramping, worsened by deep breathing. Endorses accompanying shortness of breath and occasional palpitation. He denies nausea, diaphoresis. The patient can identify no alleviating or exacerbating factors. The symptoms last a few seconds up 2 to hours. Endorses several similar episodes over the last few years. States he's had more than 10 episodes in the last 3 days. Endorses a "few days" history of nonproductive cough. Patient is current cigarette smoker. He denies familial history of CT. He endorses rare alcohol. Denies any illicit drug use. States that he's been evaluated several times with the same symptoms. He does not currently have a primary care provider. PFSH Past Medical History Hx Anticoagulant Therapy: No Arthritis: No Asthma: Yes ( A CHILD) Autoimmune Disease: No Blood Disorders: No Anxiety: Yes Depression: Yes Heart Rhythm Problems: No Cancer: No Cardiac Catheterization: Yes (05/01/14) Cardiovascular Problems: Yes High Cholesterol: No Chemotherapy: No Chest Pain: Yes Congestive Heart Failure: No COPD: No Cerebrovascular Accident: No Diabetes: No Diminished Hearing: No Deep Vein Thrombosis: Yes (LEFT ARM 2012) Endocrine: No Gastrointestinal Disorders: Yes GERD: Yes (GASTRITIS, GASTROPARESES) Glaucoma: No Genitourinary: No Headaches: Yes (MIGRAINES) Hepatitis: No Hiatal Hernia: No Hypertension: Yes Immune Disorder: No Implanted Vascular Access Dvce: No Kidney Stones: No Musculoskeletal: Yes Neurologic: Yes Psychiatric: Yes Reproductive: No Respiratory: No Immunizations Current: No Migraines: Yes Myocardial Infarction: No Pancreatitis: Yes Pneumonia: Yes Radiation Therapy: No Renal Failure: No Seizures: No Sleep Apnea: Yes Thyroid Disease: No Ulcer: No Past Surgical History Abdominal Surgery: Yes ([facility] DIVERTICUL[facility] JUN 2016) AICD: No Appendectomy: No Arteriovenous Shunt: No Cardiac Surgery: Yes (CARDIAC CATH (04/23).) Cholecystectomy: No Ear Surgery: No Endocrine Surgery: No Eye Surgery: No Genitourinary Surgery: No Gynecologic Surgery: No Hysterectomy: No Insulin Pump: No Joint Replacement: No Neurologic Surgery: No Oral Surgery: No Pacemaker: No Thoracic Surgery: Yes (1983) Other Surgery: Yes (3 YRS OLD CENTRAL LINE FOR 8 MONTHS W/HYPERTROPHY) Social History Alcohol Use: Yes (no so much) Tobacco Use: Yes (1 PACK EVERY 3 DAYS ) Substance Use: Yes ("Marijuana occasionally.") Allergies-Medications (Allergen,Severity, Reaction): Coded Allergies: penicillin G (Verified Allergy, Severe, Hallucinations, 09/05/17) morphine (Verified Allergy, Intermediate, FLUSHING/BURNING OF SKIN, ) Reported Meds & Prescriptions Reported Meds & Active Scripts Active No Active Prescriptions or Reported Medications Review of Systems Except as stated in HPI: all other systems reviewed are Neg Physical Exam Narrative GENERAL: Well-nourished, well-developed white male in no acute distress. SKIN: Focused skin assessment warm/dry. HEAD: Normocephalic. EYES: No scleral icterus. No injection or drainage. NECK: Supple, trachea midline. No JVD or lymphadenopathy. CARDIOVASCULAR: Regular rate and rhythm without murmurs, gallops, or rubs. CHEST: Reproducible tenderness over the left precordium. No retractions. RESPIRATORY: Breath sounds clear and equal bilaterally. No accessory muscle use. GASTROINTESTINAL: Abdomen soft, nondistended. Mild suprapubic tenderness. Active bowel sounds. MUSCULOSKELETAL: No cyanosis, or edema. BACK: Nontender without obvious deformity. No CVA tenderness. Data Data Last Documented VS Vital Signs Date Time Temp Pulse Resp B/P (MAP) Pulse Ox O2 Delivery O2 Flow Rate FiO2 09/05/17 21:03 09/05/17 19:45 56 18 97 Room Air 09/05/17 17:16 97.5 Orders Orders Electrocardiogram (09/05/17 17:14) Basic Metabolic Panel (Bmp) (09/05/17 17:14) Ckmb (Isoenzyme) Profile (09/05/17 17:14) Complete Blood Count With Diff (09/05/17 17:14) Magnesium (Mg) (09/05/17 17:14) Prothrombin Time / Inr (Pt) (09/05/17 17:14) Act Partial Throm Time (Ptt) (09/05/17 17:14) Troponin I (09/05/17 17:14) Lipase (09/05/17 17:14) Aspirin Chew (Aspirin Chew) (09/05/17 17:15) Chest, Pa & Lat (09/05/17 17:14) CKMB (09/05/17 17:35) CKMB% (09/05/17 17:35) Ecg Monitoring (09/05/17 18:41) Bilateral Bp Monitoring (09/05/17 18:41) Iv Access Insert/Monitor (09/05/17 18:41) Oximetry (09/05/17 18:41) Ketorolac Inj (Toradol Inj) (09/05/17 20:00) Orphenadrine Inj (Norflex Inj) (09/05/17 20:00) Ed Discharge Order (09/05/17 20:51) Labs Laboratory Tests Test 09/05/17 17:35 White Blood Count 10.6 TH/MM3 Red Blood Count 4.43 MIL/MM3 Hemoglobin 15.2 GM/DL Hematocrit 43.5 % Mean Corpuscular Volume 98.0 FL Mean Corpuscular Hemoglobin 34.2 PG Mean Corpuscular Hemoglobin Concent 34.9 % Red Cell Distribution Width 13.7 % Platelet Count 197 TH/MM3 Mean Platelet Volume 9.9 FL Neutrophils (%) (Auto) 57.4 % Lymphocytes (%) (Auto) 32.4 % Monocytes (%) (Auto) 7.9 % Eosinophils (%) (Auto) 1.5 % Basophils (%) (Auto) 0.8 % Neutrophils # (Auto) 6.1 TH/MM3 Lymphocytes # (Auto) 3.4 TH/MM3 Monocytes # (Auto) 0.8 TH/MM3 Eosinophils # (Auto) 0.2 TH/MM3 Basophils # (Auto) 0.1 TH/MM3 CBC Comment DIFF FINAL Differential Comment Prothrombin Time 10.1 SEC Prothromb Time International Ratio 1.0 RATIO Activated Partial Thromboplast Time 25.0 SEC Blood Urea Nitrogen 19 MG/DL Creatinine 0.83 MG/DL Random Glucose 98 MG/DL Calcium Level 9.0 MG/DL Magnesium Level 2.0 MG/DL Sodium Level 136 MEQ/L Potassium Level 4.1 MEQ/L Chloride Level 107 MEQ/L Carbon Dioxide Level 20.3 MEQ/L Anion Gap 9 MEQ/L Estimat Glomerular Filtration Rate 104 ML/MIN Total Creatine Kinase 117 U/L Creatine Kinase MB 1.3 NG/ML Troponin I LESS THAN 0.02 NG/ML Lipase 165 U/L MDM Medical Decision Making Medical Screen Exam Complete: Yes Emergency Medical Condition: Yes Differential Diagnosis Musculoskeletal pain versus anxiety versus GERD versus less likely ACS versus other Narrative Course 36-year-old male with PMH of gastroparesis presents to the ED for evaluation of sudden onset 10/10 left-sided pinching chest pain. Described as cramping, worsened by deep breathing. Endorses accompanying shortness of breath and occasional palpitation. He denies nausea, diaphoresis. The symptoms last a few seconds up 2 to hours. Endorses several similar episodes over the last few years. States he's had more than 10 episodes in the last 3 days. Endorses a "few days" history of nonproductive cough. Patient is current cigarette smoker. He denies familial history of CT. He endorses rare alcohol. Denies any illicit drug use. States that he's been evaluated several times with the same symptoms. He has not followed up. Vitals reviewed. Physical exam reveals reproducible tenderness over the precordium, mild epigastric tenderness to palpation, otherwise unremarkable. Patient was administered IV Toradol, IM Norflex. HEART pathway score 1, low risk. EKG: Rate 64, sinus rhythm. Normal intervals. Normal axis. No ST changes. Reviewed by Dr. Guzman. CXR: No acute abnormality or interval change or radiology read. Cardiac enzymes negative 1. No concerning abnormalities of CBC, CMP, coags. I reviewed the patient's record and his had several visits with similar symptoms. He has failed to follow up on an outpatient basis. I have low suspicion for cardiac origin of his pain. He is stable and discharged with instructions to reinitiate PPIs and follow up with the [facility]. Diagnosis Primary Impression: Chest pain made worse by breathing Referrals: [facility] Additional Instructions: Rest, hydrate. Return normal, gentle activity as tolerated. Resume antacids as discussed with Dr. Gilman. Follow-up with the [facility] to establish primary care. Return to the ED for any urgent or emergent medical condition. Scripts No Active Prescriptions or Reported Meds Disposition: 01 DISCHARGE HOME Condition: Stable Susan Walden Sep 05, 2017 19:13
[2017-09-05 19:45] VITALS: BP 156/70; PULSE 56; RESP 18; O2SAT 97
[2017-09-05] MEDS ORDERED: KETOROLAC TROMETHAMINE 30 MG/ML (IVP) VIAL IV PUSH ONE (20:00)
[2017-09-05] MEDS ORDERED: ORPHENADRINE INJ 60 MG/2 ML AMP IM ONE (20:00)
--- NOTE | 2017-09-05 21:12 | PD ---
Data Data Last Documented VS Vital Signs Date Time Temp Pulse Resp B/P (MAP) Pulse Ox O2 Delivery O2 Flow Rate FiO2 09/05/17 21:03 09/05/17 19:45 56 18 97 Room Air 09/05/17 17:16 97.5 Orders Orders Electrocardiogram (09/05/17 17:14) Basic Metabolic Panel (Bmp) (09/05/17 17:14) Ckmb (Isoenzyme) Profile (09/05/17 17:14) Complete Blood Count With Diff (09/05/17 17:14) Magnesium (Mg) (09/05/17 17:14) Prothrombin Time / Inr (Pt) (09/05/17 17:14) Act Partial Throm Time (Ptt) (09/05/17 17:14) Troponin I (09/05/17 17:14) Lipase (09/05/17 17:14) Aspirin Chew (Aspirin Chew) (09/05/17 17:15) Chest, Pa & Lat (09/05/17 17:14) CKMB (09/05/17 17:35) CKMB% (09/05/17 17:35) Ecg Monitoring (09/05/17 18:41) Bilateral Bp Monitoring (09/05/17 18:41) Iv Access Insert/Monitor (09/05/17 18:41) Oximetry (09/05/17 18:41) Ketorolac Inj (Toradol Inj) (09/05/17 20:00) Orphenadrine Inj (Norflex Inj) (09/05/17 20:00) Ed Discharge Order (09/05/17 20:51) Labs Laboratory Tests Test 09/05/17 17:35 White Blood Count 10.6 TH/MM3 Red Blood Count 4.43 MIL/MM3 Hemoglobin 15.2 GM/DL Hematocrit 43.5 % Mean Corpuscular Volume 98.0 FL Mean Corpuscular Hemoglobin 34.2 PG Mean Corpuscular Hemoglobin Concent 34.9 % Red Cell Distribution Width 13.7 % Platelet Count 197 TH/MM3 Mean Platelet Volume 9.9 FL Neutrophils (%) (Auto) 57.4 % Lymphocytes (%) (Auto) 32.4 % Monocytes (%) (Auto) 7.9 % Eosinophils (%) (Auto) 1.5 % Basophils (%) (Auto) 0.8 % Neutrophils # (Auto) 6.1 TH/MM3 Lymphocytes # (Auto) 3.4 TH/MM3 Monocytes # (Auto) 0.8 TH/MM3 Eosinophils # (Auto) 0.2 TH/MM3 Basophils # (Auto) 0.1 TH/MM3 CBC Comment DIFF FINAL Differential Comment Prothrombin Time 10.1 SEC Prothromb Time International Ratio 1.0 RATIO Activated Partial Thromboplast Time 25.0 SEC Blood Urea Nitrogen 19 MG/DL Creatinine 0.83 MG/DL Random Glucose 98 MG/DL Calcium Level 9.0 MG/DL Magnesium Level 2.0 MG/DL Sodium Level 136 MEQ/L Potassium Level 4.1 MEQ/L Chloride Level 107 MEQ/L Carbon Dioxide Level 20.3 MEQ/L Anion Gap 9 MEQ/L Estimat Glomerular Filtration Rate 104 ML/MIN Total Creatine Kinase 117 U/L Creatine Kinase MB 1.3 NG/ML Troponin I LESS THAN 0.02 NG/ML Lipase 165 U/L MDM Supervised Visit with FOUZIA: Yes Narrative Course The history, exam, and medical decision-making in the associated mid-level provider note were completed with my assistance. I reviewed and agree with the findings presented. I attest that I had a [id number] encounter with the patient on the same day, and personally performed and documented my assessment and findings in the medical record. *My assessment and Findings: 36-year-old man, long-standing history of atypical chest pain likely gastritis. She's been treated multiple times in the past. He is not taking his PPI or sucralfate now. Treated with opiates in the past as well. He looks well. Initial workups benign. Recommend outpatient follow-up and compliance with PPI and sucralfate. Diagnosis Primary Impression: Chest pain made worse by breathing Referrals: [facility] Patient Instructions: General Instructions Departure Forms: Tests/Procedures Additional Instruction: Rest, hydrate. Return normal, gentle activity as tolerated. Resume antacids as discussed with Dr. Gilman. Follow-up with the [facility] to establish primary care. Return to the ED for any urgent or emergent medical condition. Scripts No Active Prescriptions or Reported Meds Disposition: 01 DISCHARGE HOME Condition: Stable Guero Gilman MD Sep 05, 2017 21:12
--- NOTE | 2017-09-06 23:11 | EKG ---
Date Performed: 09/05/2017 Time Performed: 17:27:31 PTAGE: 36 years EKG: Sinus rhythm NORMAL ECG PREVIOUS TRACING : 07/12/2017 10.04 Compared to prior tracing no significant change DOCTOR: Dewayne Nicole Interpretating Date/Time 09/06/2017 23:10:44
== END 2017-09-05 21:13 | disposition home or self-care (01) ==
LOC: NEPC 17:11
DX: R07.1 Chest pain on breathing (principal); R00.2 Palpitations; R05 Cough; R06.02 Shortness of breath; F12.90 Cannabis use, unspecified, uncomplicated; F17.210 Nicotine dependence, cigarettes, uncomplicated
CPT/HCPCS: 71020; 80048; 82550; 82552; 83690; 83735; 84484; 85025; 85610; 85730; 93005; 96372; 96374; 99284; J1885; J2360

== ENCOUNTER 2017-10-09 16:27 | Emergency (ER) | payer MEDICAID ==
[~2017-10-09] VITALS: Ht 172.7 cm; Wt 77.3 kg
[2017-10-09] MEDS ORDERED: IOHEXOL 350 MG/ML 10 ML VIAL (for RAD DIAG) IVCONTRAST ONE (16:28)
[2017-10-09 16:29] VITALS: BP 160/72; PULSE 75; RESP 18; TEMP 98; O2SAT 100
[2017-10-09 18:16] LABS: AUTOMATED NEUTROPHIL # 3.9 TH/MM3 (1.8-7.7); BASOPHIL # 0.1 TH/MM3 (0-0.2); BASOPHIL % 0.8 % (0.0-2.0); EOSINOPHIL # 0.1 TH/MM3 (0-0.4); EOSINOPHIL % 1.4 % (0.0-4.0); HEMATOCRIT 44.5 % (39.0-51.0); HEMOGLOBIN 15.7 GM/DL (13.0-17.0); LYMPH % 41.5 % (9.0-44.0); LYMPHOCYTE # 3.3 TH/MM3 (1.0-4.8); MEAN CORPUSCULAR HEMOGLOBIN 34.6 PG (27.0-34.0); MEAN CORPUSCULAR HGB CONC 35.3 % (32.0-36.0); MEAN PLATELET VOLUME 9.5 FL (7.0-11.0); MONO % 7.2 % (0.0-8.0); MONOCYTE # 0.6 TH/MM3 (0-0.9); NEUT % 49.1 % (16.0-70.0); PLATELET COUNT 197 TH/MM3 (150-450); RED BLOOD COUNT 4.54 MIL/MM3 (4.50-5.90); RED CELL DISTRIBUTION WIDTH 13.7 % (11.6-17.2)
[2017-10-09 18:23] LABS: BILIRUBIN, URINE NEG (NEG); BLOOD, URINE NEG (NEG); GLUCOSE,URINE NEG (NEG); KETONE, URINE NEG (NEG); MUCUS URINE FEW /lpf (OCC); NITRITE,URINE NEG (NEG); PH, URINE 5.5 (5.0-8.5); URINE COLOR YELLOW (YELLW/STRAW); URINE LEUKOCYTE ESTERASE NEG (NEG)
[2017-10-09 18:35] LABS: ALT (GPT) 33 U/L (12-78)
[2017-10-09 18:36] LABS: ALBUMIN 4.5 GM/DL (3.4-5.0); AST (GOT) 19 U/L (15-37); BLOOD UREA NITROGEN 9 MG/DL (7-18); CALCIUM 9.6 MG/DL (8.5-10.1); CHLORIDE 104 MEQ/L (98-107); CREATININE 0.85 MG/DL (0.60-1.30); GLOMERULAR FILTRATION RATE 101 ML/MIN (>89); GLUCOSE,RANDOM 77 MG/DL (74-106); LIPASE 136 U/L (73-393); SODIUM (NA) 138 MEQ/L (136-145)
[2017-10-09 18:38] LABS: ALKALINE PHOSPHATASE 80 U/L (45-117); TOTAL BILIRUBIN ADULT 0.3 MG/DL (0.2-1.0); TOTAL PROTEIN 8.2 GM/DL (6.4-8.2); TROPONIN I LESS THAN 0.02 NG/ML (0.02-0.05)
[2017-10-09] MEDS ORDERED: CARA1TAB6 PO (18:41)
[2017-10-09] MEDS ORDERED: OMEP20TA93 PO (18:42)
[2017-10-09] MEDS ORDERED: ZOFR4TAB PO (18:42)
[2017-10-09] MEDS ORDERED: ERYT250C PO (18:42)
[2017-10-09] MEDS ORDERED: SODIUM CHLOR 0.9% 1000 ML INJ 1,000 ML IV ONE (19:15)
[2017-10-09] MEDS ORDERED: PANTOPRAZOLE SODIUM 40 MG VIAL IV PUSH ONE (19:15)
[2017-10-09] MEDS ORDERED: ONDANSETRON HCL 4 MG/2 ML VIAL IV ONE (19:15)
--- NOTE | 2017-10-09 19:15 | PD ---
HPI Chief Complaint: Abdominal Pain Time Seen by Provider: 19:09 Travel History International Travel<30 days: No Contact w/Intl Traveler<30days: No Traveled to known affect area: No History of Present Illness HPI The patient is a 36 year old male who presents to the [facility] emergency department with a history of abdominal pain, N/V that have been worse over the last 3 months. The patient reports that he's been diagnosed with gastritis years ago. He reports that he believes that he is also been diagnosed with a component of gastroparesis as he was placed on erythromycin in the past. He reports that he is unsure causes insurance and has difficulty affording his medications. He therefore discontinued his medications which included omeprazole, Zofran, erythromycin, and Carafate at which point his symptoms began to recur. The patient has been to the emergency department on multiple occasions recently with exacerbations of his pain. He was started back on Carafate and omeprazole. He reports that he is also given a prescription for Zofran, however it is difficult for him to afford. He is unsure if he is rather of whether he has been on Reglan in the past. He reports that his supplier diversity director is Dr. Gomez and [facility] of [facility]. He last had endoscopy done approximately a year ago. The patient reports that over the last month he is also had changes in his bowel movements. He reports that his bowel movements have been thinner than usual with pain with moving his bowels as a stabbing sensation a generalized throughout the abdomen and most focused in the umbilical region. The patient reports that over the last 4 days he's had difficulty tolerating any food. He reports that he's been drinking diet Pepsi and keeping this down. Otherwise approximately 30 minutes after eating he develops abdominal pain and then vomits. Review of systems otherwise, the patient denies having any recent fevers,cough, congestion, neck pain, chest pain , shortness of breath, urinary symptoms, or neurologic symptoms. [facility] Past Medical History Narrative Medical The patient's past medical history is significant for gastritis, possible gastroparesis, recurrent chest pain with negative workups in the past, history of DVT of the upper extremity in the past, migraine headaches Hx Anticoagulant Therapy: No Arthritis: No Asthma: Yes ( A CHILD) Autoimmune Disease: No Blood Disorders: No Anxiety: Yes Depression: Yes Heart Rhythm Problems: No Cancer: No Cardiac Catheterization: Yes (05/01/14) Cardiovascular Problems: Yes High Cholesterol: No Chemotherapy: No Chest Pain: Yes Congestive Heart Failure: No COPD: No Cerebrovascular Accident: No Diabetes: No Diminished Hearing: No Deep Vein Thrombosis: Yes (LEFT ARM 2012) Endocrine: No Gastrointestinal Disorders: Yes GERD: Yes (GASTRITIS, GASTROPARESES) Glaucoma: No Genitourinary: No Headaches: Yes (MIGRAINES) Hepatitis: No Hiatal Hernia: No Hypertension: Yes Immune Disorder: No Implanted Vascular Access Dvce: No Kidney Stones: No Musculoskeletal: Yes Neurologic: Yes Psychiatric: Yes Reproductive: No Respiratory: No Immunizations Current: No Migraines: Yes Myocardial Infarction: No Pancreatitis: Yes Pneumonia: Yes Radiation Therapy: No Renal Failure: No Seizures: No Sleep Apnea: Yes Thyroid Disease: No Ulcer: No Tetanus Vaccination: Unknown Influenza Vaccination: No Past Surgical History Narrative Surgical The patient's past surgical history is significant for Meckel's diverticulum repair, history of cardiac catheterization Abdominal Surgery: Yes (MECKEL'S DIVERTICULUM JUN 2016) AICD: No Appendectomy: No Arteriovenous Shunt: No Cardiac Surgery: Yes (CARDIAC CATH (04/23).) Cholecystectomy: No Ear Surgery: No Endocrine Surgery: No Eye Surgery: No Genitourinary Surgery: No Gynecologic Surgery: No Hysterectomy: No Insulin Pump: No Joint Replacement: No Neurologic Surgery: No Oral Surgery: No Pacemaker: No Thoracic Surgery: Yes (1983) Other Surgery: Yes (5 YRS OLD CENTRAL LINE FOR 8 MONTHS W/HYPERTROPHY) Social History Alcohol Use: Yes (occasional) Tobacco Use: Yes (1 PACK EVERY 3 DAYS ) Substance Use: Yes ("Marijuana occasionally.") Allergies-Medications (Allergen,Severity, Reaction): Coded Allergies: penicillin G (Verified Allergy, Severe, Hallucinations, 10/09/17) morphine (Verified Allergy, Intermediate, FLUSHING/BURNING OF SKIN, ) Reported Meds & Prescriptions Reported Meds & Active Scripts Active Reglan (Metoclopramide HCl) 10 Mg Tab 10 Mg PO QID PRN Reported Zofran (Ondansetron HCl) 4 Mg Tab 4 Mg PO Q6HR PRN Omeprazole 20 Mg Tab 20 Mg PO DAILY Erythromycin (Erythromycin Base) 250 Mg Capsule.dr 1 Tab PO DAILY Carafate (Sucralfate) 1 Gram Tab 1 Gm PO TID On empty stomach Review of Systems Except as stated in HPI: all other systems reviewed are Neg General / Constitutional: No: Fever Eyes: No: Visual changes HENT: No: Headaches Cardiovascular: Positive: Chest Pain or Discomfort Respiratory: No: Shortness of Breath Gastrointestinal: Positive: Nausea, Vomiting, Abdominal Pain, Changes in Bowel Habits, Indigestion, No: Hematemesis, Hematochezia, Loss of Appetite Genitourinary: No: Dysuria Musculoskeletal: No: Pain Skin: No Rash Neurologic: No: Weakness Psychiatric: No: Depression Endocrine: No: Polydipsia Hematologic/Lymphatic: No: Easy Bruising Physical Exam Narrative General: The patient is a well-developed well-nourished male in no acute distress. Head and Neck exam: Head is normocephalic atraumatic. Eyes: EOMI, pupils are equal round and reactive to light. Nose: Midline septum with pink mucous membranes Mouth: Dentition unremarkable. Moist mucus membranes. Posterior oropharynx is not erythematous. No tonsillar hypertrophy. Uvula midline. Airway patent. Neck: No palpable lymphadenopathy. No nuchal rigidity. No thyromegaly. Cardiovascular: Regular rate and rhythm without murmurs, gallops, or rubs. Lungs: Clear to auscultation bilaterally. No wheezes, rhonchi, or rales. Abdomen: Soft, with tenderness on palpation diffusely reported throughout the abdomen with minimal palpation. No guarding, rebound, or rigidity. Normal bowel sounds are audible. No point tenderness over McBurney's point. Negative Herbert 's sign. Extremities: No clubbing, cyanosis, or edema. 2+ pulses in all 4 extremities. No calf tenderness on palpation. Back: No costovertebral angle tenderness to palpation. Neurologic Exam: Grossly nonfocal. Skin Exam: No rash noted. Intact skin that is warm and dry. Data Data Last Documented VS Vital Signs Date Time Temp Pulse Resp B/P (MAP) Pulse Ox O2 Delivery O2 Flow Rate FiO2 10/09/17 19:25 62 18 139/82 (101) 96 Room Air 10/09/17 16:29 98.0 Orders Orders Complete Blood Count With Diff (10/09/17 16:42) Comprehensive Metabolic Panel (10/09/17 16:42) Lipase (10/09/17 16:42) Urinalysis - C+S If Indicated (10/09/17 16:42) Creatine Kinase (Cpk) (10/09/17 16:42) Troponin I (10/09/17 16:42) Electrocardiogram (10/09/17 ) Sodium Chlor 0.9% 1000 Ml Inj (Ns 1000 M (10/09/17 19:15) Ondansetron Inj (Zofran Inj) (10/09/17 19:15) Pantoprazole Inj (Protonix Inj) (10/09/17 19:15) Ct Abd/Pel W Iv Contrast(Rout) (10/09/17 19:39) Iohexol 350 Inj (Omnipaque 350 Inj) (10/09/17 16:28) Labs Laboratory Tests Test 10/09/17 17:49 10/09/17 17:56 White Blood Count 8.0 TH/MM3 Red Blood Count 4.54 MIL/MM3 Hemoglobin 15.7 GM/DL Hematocrit 44.5 % Mean Corpuscular Volume 98.0 FL Mean Corpuscular Hemoglobin 34.6 PG Mean Corpuscular Hemoglobin Concent 35.3 % Red Cell Distribution Width 13.7 % Platelet Count 197 TH/MM3 Mean Platelet Volume 9.5 FL Neutrophils (%) (Auto) 49.1 % Lymphocytes (%) (Auto) 41.5 % Monocytes (%) (Auto) 7.2 % Eosinophils (%) (Auto) 1.4 % Basophils (%) (Auto) 0.8 % Neutrophils # (Auto) 3.9 TH/MM3 Lymphocytes # (Auto) 3.3 TH/MM3 Monocytes # (Auto) 0.6 TH/MM3 Eosinophils # (Auto) 0.1 TH/MM3 Basophils # (Auto) 0.1 TH/MM3 CBC Comment DIFF FINAL Differential Comment Blood Urea Nitrogen 9 MG/DL Creatinine 0.85 MG/DL Random Glucose 77 MG/DL Total Protein 8.2 GM/DL Albumin 4.5 GM/DL Calcium Level 9.6 MG/DL Alkaline Phosphatase 80 U/L Aspartate Amino Transf (AST/SGOT) 19 U/L Alanine Aminotransferase (ALT/SGPT) 33 U/L Total Bilirubin 0.3 MG/DL Sodium Level 138 MEQ/L Potassium Level 4.2 MEQ/L Chloride Level 104 MEQ/L Carbon Dioxide Level 27.0 MEQ/L Anion Gap 7 MEQ/L Estimat Glomerular Filtration Rate 101 ML/MIN Total Creatine Kinase 95 U/L Troponin I LESS THAN 0.02 NG/ML Lipase 136 U/L Urine Color YELLOW Urine Turbidity CLEAR Urine pH 5.5 Urine Specific Perley 1.016 Urine Protein NEG mg/dL Urine Glucose (UA) NEG mg/dL Urine Ketones NEG mg/dL Urine Occult Blood NEG Urine Nitrite NEG Urine Bilirubin NEG Urine Urobilinogen LESS THAN 2.0 MG/DL Urine Leukocyte Esterase NEG Urine RBC LESS THAN 1 /hpf Urine WBC 1 /hpf Urine Mucus FEW /lpf Microscopic Urinalysis Comment CULT NOT INDICATED MDM Medical Decision Making Medical Screen Exam Complete: Yes Emergency Medical Condition: Yes Medical Record Reviewed: Yes Interpretation(s) Last Impressions Abdomen/Pelvis CT 10/09/171938 Signed Impressions: Service Date/Time: Monday, October 09, 2017 20:21 - CONCLUSION: 1. Hepatomegaly. 2. Uncomplicated colonic diverticulosis. Jose Lion MD Differential Diagnosis Partial bowel obstruction, versus recurrence of acid reflux, versus gastroparesis, versus cyclic vomiting syndrome, versus dehydration, versus pancreatitis Narrative Course During the course of the patients emergency department visit, the patients history, examination, and differential diagnosis were reviewed with the patient. The patient was placed on a hospital monitor with oximetry and frequent blood pressure monitoring. The patient had IV access obtained and blood work sent for analysis. The patient was initially provided normal saline 1 L IV fluid bolus, Zofran 4 mg IV, Protonix 40 mg IV. The patients laboratory studies were reviewed and remarkable for a CBC that is unremarkable, CMP within normal limits, cardiac enzymes within normal limits, lipase within normal limits at 136, urinalysis unremarkable Given the patient's reported change in his bowel movements and worsening abdominal pain a CT scan of the abdomen and pelvis with IV contrast is been ordered. CT scan of the abdomen and pelvis showed hepatomegaly, uncomplicated colonic diverticulosis. The patient is instructed to follow-up with the failure clinic or a primary care physician for his primary care. The patient is instructed to follow-up with his supplier diversity director within the next week. The patient is given a prescription for Reglan at discharge. The patient is resting comfortably and feels better, is alert and in no distress. The patients results and examination findings were discussed with the patient. The repeat examination is unremarkable and benign. The history, exam, diagnostic testing, and current condition do not suggest any significant pathology to warrant further testing, continued ED treatment, admission, or surgical evaluation at this point. The vital signs have been stable. The patient does not have uncontrollable pain, intractable vomiting, or other significant symptoms. The patient's condition is stable and appropriate for discharge. The patient will pursue further outpatient evaluation with a primary care physician or other designated or consulting physician as indicated in the discharge instructions. The patient expressed understanding and was agreeable with this plan. Diagnosis Primary Impression: Nausea & vomiting Qualified Codes: R11.2 - Nausea with vomiting, unspecified Additional Impressions: Abdominal pain Qualified Codes: R10.84 - Generalized abdominal pain Gastritis Qualified Codes: K29.70 - Gastritis, unspecified, without bleeding Referrals: [facility] [employer] Patient Instructions: Abdominal Pain (ED), Acute Nausea and Vomiting (ED), Gastritis (ED), General Instructions Med/Other Pt SpecificInfo: Prescription(s) given Scripts Metoclopramide (Reglan) 10 Mg Tab 10 MG PO QID Y for NAUSEA OR VOMITING, #30 TAB 0 Refills Prov: Marisa Marina MD 10/09/17 Disposition: DISCHARGE HOME Condition: Stable Marisa Marina MD Oct 09, 2017 19:14
[2017-10-09 19:25] VITALS: BP 139/82; PULSE 62; RESP 18; O2SAT 96
[2017-10-09] MEDS ORDERED: REGL10TA5 PO (19:58)
--- NOTE | 2017-10-09 20:44 | RADRPT ---
EXAM DATE/TIME: 10/09/2017 20:21 [facility] COMPARISON: CT ABDOMEN & PELVIS W CONTRAST, September 15, 2016, 6:33. INDICATIONS : Patient complains of abdominal pain, IV CONTRAST: 72 cc Omnipaque 350 (iohexol) IV ORAL CONTRAST: No oral contrast ingested. RADIATION DOSE: 6.64 CTDIvol (mGy) MEDICAL HISTORY : Cardiovascular disease. Hypertension. Pancreatitis. SURGICAL HISTORY : None. ENCOUNTER: Initial ACUITY: 1 day PAIN SCALE: 5/10 LOCATION: abdomen TECHNIQUE: Volumetric scanning of the abdomen and pelvis was performed. Using automated exposure control and ad justment of the mA and/or kV according to patient size, radiation dose was kept as low as reasonably achievable to obtain optimal diagnostic quality images. DICOM format image data is available electro nically for review and comparison. FINDINGS: LOWER LUNGS: The visualized lower lungs are clear. LIVER: Hepatomegaly is noted. Homogeneous density without lesion. There is no dilation of the biliary tree. No calcified gallstones. SPLEEN: Normal size without lesion. PANCREAS: Within normal limits. KIDNEYS: Normal in size and shape. There is no mass, stone or hydronephrosis. ADRENAL GLANDS: Within normal limits. VASCULAR: There is no aortic aneurysm. BOWEL/MESENTERY: Uncomplicated colonic diverticulosis is noted. No acute diverticulitis is noted. The appendix is norm al. No bowel obstruction is noted. ABDOMINAL WALL: Within normal limits. RETROPERITONEUM: There is no lymphadenopathy. BLADDER: No wall thickening or mass. REPRODUCTIVE: Within normal limits. INGUINAL: There is no lymphadenopathy or hernia. MUSCULOSKELETAL: Within normal limits for patient age. CONCLUSION: 1. Hepatomegaly. 2. Uncomplicated colonic diverticulosis. Jose Lion MD on October 09, 2017 at 20:38 Board Certified Radiologist. This report was verified electronically.
--- NOTE | 2017-10-10 09:25 | EKG ---
Date Performed: 10/09/2017 Time Performed: 17:53:52 PTAGE: 36 years EKG: SINUS BRADYCARDIA EARLY REPOLARIZATION BORDERLINE ECG Since the prior tracing, there has be en no significant change PREVIOUS TRACING : 09/05/2017 17.27 DOCTOR: Raman Cline Interpretating Date/Time 10/10/2017 09:22:43
== END 2017-10-09 23:49 | disposition home or self-care (01) ==
LOC: NEPC 16:27
DX: K29.70 Gastritis, unspecified, without bleeding (principal); R11.2 Nausea with vomiting, unspecified; R10.84 Generalized abdominal pain; K57.30 Diverticulosis of large intestine without perforation or abscess without bleeding; R16.0 Hepatomegaly, not elsewhere classified; F17.200 Nicotine dependence, unspecified, uncomplicated; F12.90 Cannabis use, unspecified, uncomplicated; R00.1 Bradycardia, unspecified
CPT/HCPCS: 74177; 80053; 81001; 82550; 83690; 84484; 85025; 93005; 96361; 96374; 96375; 99285; C9113; J2405; J7030; Q9967

== ENCOUNTER 2017-11-26 15:47 | Emergency (ER) | payer MEDICAID ==
[~2017-11-26 15:47] MED LIST changes: +CARA1TAB6 PO; +ERYT250C PO; -ERYT250T13 PO; +OMEP20TA93 PO; -OMEP40CA2 PO; +REGL10TA5 PO; -SUCR1TAB PO; +ZOFR4TAB PO; -ZOFR4TAB3 SL
[2017-11-26 16:11] VITALS: BP 164/108; PULSE 114; RESP 28; TEMP 97.9; O2SAT 100
--- NOTE | 2017-11-26 16:54 | RADRPT ---
EXAM DATE/TIME: 11/26/2017 16:35 [facility] COMPARISON: CHEST PA & LAT, September 05, 2017, 17:44. INDICATIONS : Chest and abdominal pain today, also complains of nausea, vomiting, tremors and anxiety MEDICAL HISTORY : Pancreatitis. Hypertension hepatomegaly SURGICAL HISTORY : None. ENCOUNTER: Initial ACUITY: 1 day PAIN SCORE: 10/10 LOCATION: Bilateral chest FINDINGS: PA and lateral views of the chest demonstrate the lungs to be symmetrically aerated without evidence of mass, infiltrate or effusion. The cardiomediastinal contours are unremarkable. Osseous structure s are intact. CONCLUSION: 1. No acute cardiopulmonary findings identified. Leonard Givens MD on November 26, 2017 at 16:51 Board Certified Radiologist. This report was verified electronically.
[2017-11-26] MEDS ORDERED: ONDANSETRON HCL 4 MG/2 ML VIAL IV PUSH ONE (17:15)
[2017-11-26] MEDS ORDERED: FAMOTIDINE 20 MG/2 ML VIAL IV PUSH ONE (17:15)
[2017-11-26] MEDS ORDERED: SODIUM CHLOR 0.9% 1000 ML INJ 1,000 ML IV ONE (17:15)
--- NOTE | 2017-11-26 17:35 | PD ---
HPI Chief Complaint: Chest Pain Time Seen by Provider: 17:13 Travel History International Travel<30 days: No Contact w/Intl Traveler<30days: No Traveled to known affect area: No History of Present Illness HPI 37-year-old male patient with history of alcohol abuse, gastritis, pancreatitis , presents to the ER today because he states he had alcohol last night and this morning woke up with severe left upper quadrant abdominal pain and left-sided chest pains. He has been nauseous and vomiting. He denies any fevers or other issues. Pain is currently rated as 7 out of 10. Modifying Factors: None Associated Signs & Symptoms: Left-sided chest pains and left upper quadrant abdominal pain Risk Factors: Pancreatitis, gastritis, alcohol use PFSH Past Medical History Hx Anticoagulant Therapy: No Arthritis: No Asthma: Yes ( A CHILD) Autoimmune Disease: No Blood Disorders: No Anxiety: Yes Depression: Yes Heart Rhythm Problems: No Cancer: No Cardiac Catheterization: Yes (05/01/14) Cardiovascular Problems: Yes High Cholesterol: No Chemotherapy: No Chest Pain: Yes Congestive Heart Failure: No COPD: No Cerebrovascular Accident: No Diabetes: No Diminished Hearing: No Deep Vein Thrombosis: Yes (LEFT ARM 2012) Endocrine: No Gastrointestinal Disorders: Yes GERD: Yes (GASTRITIS, GASTROPARESES) Glaucoma: No Genitourinary: No Headaches: Yes (MIGRAINES) Hepatitis: No Hiatal Hernia: No Hypertension: Yes Immune Disorder: No Implanted Vascular Access Dvce: No Kidney Stones: No Musculoskeletal: Yes Neurologic: Yes Psychiatric: Yes Reproductive: No Respiratory: No Immunizations Current: No Migraines: Yes Myocardial Infarction: No Pancreatitis: Yes Pneumonia: Yes Radiation Therapy: No Renal Failure: No Seizures: No Sleep Apnea: Yes Thyroid Disease: No Ulcer: No Influenza Vaccination: Yes Past Surgical History Abdominal Surgery: Yes (MECKEL'S DIVERTICULUM JUN 2016) AICD: No Appendectomy: No Arteriovenous Shunt: No Cardiac Surgery: Yes (CARDIAC CATH (04/23).) Cholecystectomy: No Ear Surgery: No Endocrine Surgery: No Eye Surgery: No Genitourinary Surgery: No Gynecologic Surgery: No Hysterectomy: No Insulin Pump: No Joint Replacement: No Neurologic Surgery: No Oral Surgery: No Pacemaker: No Thoracic Surgery: Yes (1983) Other Surgery: Yes (5 YRS OLD CENTRAL LINE FOR 8 MONTHS W/HYPERTROPHY) Social History Alcohol Use: Yes (occasional) Tobacco Use: Yes (1 PACK EVERY 3 DAYS ) Substance Use: Yes ("Marijuana occasionally.") Allergies-Medications (Allergen,Severity, Reaction): Coded Allergies: penicillin G (Verified Allergy, Severe, rash, 11/26/17) morphine (Verified Allergy, Intermediate, rash, 11/26/17) Reported Meds & Prescriptions Reported Meds & Active Scripts Active No Active Prescriptions or Reported Medications Review of Systems Except as stated in HPI: all other systems reviewed are Neg Physical Exam Narrative GENERAL: Well-developed middle-age male patient currently in moderate distress. Awake and oriented 3. SKIN: Focused skin assessment warm/dry. HEAD: Atraumatic. Normocephalic. EYES: Pupils equal and round. No scleral icterus. No injection or drainage. ENT: No nasal bleeding or discharge. Mucous membranes pink and moist. NECK: Trachea midline. No JVD. CARDIOVASCULAR: Regular rate and rhythm. No murmur appreciated. RESPIRATORY: No accessory muscle use. Clear to auscultation. Breath sounds equal bilaterally. GASTROINTESTINAL: Abdomen soft, left upper quadrant tenderness without guarding or rebound r, nondistended. Hepatic and splenic margins not palpable. MUSCULOSKELETAL: No obvious deformities. No clubbing. No cyanosis. No edema. NEUROLOGICAL: Awake and alert. No obvious cranial nerve deficits. Motor grossly within normal limits. Normal speech. PSYCHIATRIC: Appropriate mood and affect; insight and judgment normal. Data Data Last Documented VS Vital Signs Date Time Temp Pulse Resp B/P (MAP) Pulse Ox O2 Delivery O2 Flow Rate FiO2 11/26/17 17:08 89 17 95 Room Air 11/26/17 16:11 97.9 164/108 (126) Orders Orders Electrocardiogram (11/26/17 16:14) Ckmb (Isoenzyme) Profile (11/26/17 16:14) Complete Blood Count With Diff (11/26/17 16:14) Comprehensive Metabolic Panel (11/26/17 16:14) Magnesium (Mg) (11/26/17 16:14) Prothrombin Time / Inr (Pt) (11/26/17 16:14) Act Partial Throm Time (Ptt) (11/26/17 16:14) Troponin I (11/26/17 16:14) Lipase (11/26/17 16:14) Chest, Pa & Lat (11/26/17 16:14) Sodium Chlor 0.9% 1000 Ml Inj (Ns 1000 M (11/26/17 17:15) Ondansetron Inj (Zofran Inj) (11/26/17 17:15) Famotidine Inj (Pepcid Inj) (11/26/17 17:15) CKMB (11/26/17 16:43) CKMB% (11/26/17 16:43) Sodium Chloride 0.9% Flush (Ns Flush) (11/26/17 18:45) Al-Mag Hy-Si 40-40-4 Mg/Ml Liq (Mag-Al P (11/26/17 18:45) Lidocaine 2% Viscous (Xylocaine 2% Visco (11/26/17 18:45) Ct Abd/Pel W Iv Contrast(Rout) (11/26/17 18:36) Iohexol 350 Inj (Omnipaque 350 Inj) (11/26/17 19:00) Labs Laboratory Tests Test 11/26/17 16:43 White Blood Count 12.7 TH/MM3 Red Blood Count 4.81 MIL/MM3 Hemoglobin 16.3 GM/DL Hematocrit 47.4 % Mean Corpuscular Volume 98.4 FL Mean Corpuscular Hemoglobin 33.9 PG Mean Corpuscular Hemoglobin Concent 34.4 % Red Cell Distribution Width 13.3 % Platelet Count 247 TH/MM3 Mean Platelet Volume 9.6 FL Neutrophils (%) (Auto) 61.4 % Lymphocytes (%) (Auto) 30.6 % Monocytes (%) (Auto) 7.0 % Eosinophils (%) (Auto) 0.5 % Basophils (%) (Auto) 0.5 % Neutrophils # (Auto) 7.8 TH/MM3 Lymphocytes # (Auto) 3.9 TH/MM3 Monocytes # (Auto) 0.9 TH/MM3 Eosinophils # (Auto) 0.1 TH/MM3 Basophils # (Auto) 0.1 TH/MM3 CBC Comment DIFF FINAL Differential Comment Prothrombin Time 10.8 SEC Prothromb Time International Ratio 1.1 RATIO Activated Partial Thromboplast Time 25.2 SEC Blood Urea Nitrogen 11 MG/DL Creatinine 0.95 MG/DL Random Glucose 95 MG/DL Total Protein 8.6 GM/DL Albumin 5.0 GM/DL Calcium Level 10.4 MG/DL Magnesium Level 1.8 MG/DL Alkaline Phosphatase 92 U/L Aspartate Amino Transf (AST/SGOT) 24 U/L Alanine Aminotransferase (ALT/SGPT) 35 U/L Total Bilirubin 0.7 MG/DL Sodium Level 137 MEQ/L Potassium Level 3.8 MEQ/L Chloride Level 104 MEQ/L Carbon Dioxide Level 20.8 MEQ/L Anion Gap 12 MEQ/L Estimat Glomerular Filtration Rate 88 ML/MIN Total Creatine Kinase 297 U/L Creatine Kinase MB 2.2 NG/ML Troponin I LESS THAN 0.02 NG/ML Lipase 116 U/L MDM Medical Decision Making Medical Screen Exam Complete: Yes Emergency Medical Condition: Yes Medical Record Reviewed: Yes Interpretation(s) EKG shows NSR, no ST elevation or depression, and no arrhythmias. No significant T-wave inversions. Laboratory Tests Test 11/26/17 16:43 White Blood Count 12.7 TH/MM3 (4.0-11.0) Neutrophils # (Auto) 7.8 TH/MM3 (1.8-7.7) Total Protein 8.6 GM/DL (6.4-8.2) Calcium Level 10.4 MG/DL (8.5-10.1) Carbon Dioxide Level 20.8 MEQ/L (21.0-32.0) Estimat Glomerular Filtration Rate 88 ML/MIN (>89) Troponin I LESS THAN 0.02 NG/ML Last 24 hours Impressions Chest X-Ray 11/26/17 1614 Signed Impressions: Service Date/Time: Sunday, November 26, 2017 16:35 - CONCLUSION: 1. No acute cardiopulmonary findings identified. Leonard Givens MD Differential Diagnosis Left upper quadrant abdominal pain and left-sided chest pains, nausea and vomiting: Gastritis versus pancreatitis versus ACS versus muscular Narrative Course EKG did not show any signs of dysrhythmias or acute ST changes. Symptoms are more indicative of a GI cause and patient was given acid blocking medication, IV fluids and nausea medication in the ER. It seems to have started after he drank alcohol last night. Lab work was fairly unremarkable he did have some leukocytosis and CAT scan was also ordered for further evaluation. Lipase was within normal limits. CAT scan did not show any signs of acute intra-abdominal processes. At this point, my plan would be to release him with follow-up to primary care doctor. Return for worsening of symptoms as necessary. The plan has been discussed with him he states understanding. He should avoid further alcohol use. Diagnosis Primary Impression: Gastritis Med/Other Pt SpecificInfo: Prescription(s) given Scripts Metoclopramide (Reglan) 10 Mg Tab 10 MG PO QID, #20 TAB 0 Refills Prov: Paddy Bob MD 11/26/17 Ranitidine (Zantac) 300 Mg Tab 300 MG PO DAILY for 10 Days, #10 TAB 0 Refills Prov: Paddy Bob MD 11/26/17 Disposition: 01 DISCHARGE HOME Condition: Stable Paddy Bob MD Nov 26, 2017 17:34
[2017-11-26 17:55] LABS: AUTOMATED NEUTROPHIL # 7.8 TH/MM3 (1.8-7.7); BASOPHIL # 0.1 TH/MM3 (0-0.2); BASOPHIL % 0.5 % (0.0-2.0); EOSINOPHIL # 0.1 TH/MM3 (0-0.4); EOSINOPHIL % 0.5 % (0.0-4.0); HEMATOCRIT 47.4 % (39.0-51.0); HEMOGLOBIN 16.3 GM/DL (13.0-17.0); LYMPH % 30.6 % (9.0-44.0); LYMPHOCYTE # 3.9 TH/MM3 (1.0-4.8); MEAN CELL VOLUME 98.4 FL (80.0-100.0); MEAN CORPUSCULAR HEMOGLOBIN 33.9 PG (27.0-34.0); MEAN CORPUSCULAR HGB CONC 34.4 % (32.0-36.0); MEAN PLATELET VOLUME 9.6 FL (7.0-11.0); MONOCYTE # 0.9 TH/MM3 (0-0.9); NEUT % 61.4 % (16.0-70.0); PLATELET COUNT 247 TH/MM3 (150-450); RED BLOOD COUNT 4.81 MIL/MM3 (4.50-5.90); RED CELL DISTRIBUTION WIDTH 13.3 % (11.6-17.2); WHITE BLOOD COUNT 12.7 TH/MM3 (4.0-11.0)
[2017-11-26 18:08] LABS: INTERNATIONAL NORMALIZED RATIO 1.1 RATIO; PROTHROMBIN TIME - PATIENT 10.8 SEC (9.8-11.6)
[2017-11-26 18:14] LABS: AST (GOT) 24 U/L (15-37); BICARBONATE 20.8 MEQ/L (21.0-32.0); BLOOD UREA NITROGEN 11 MG/DL (7-18); CALCIUM 10.4 MG/DL (8.5-10.1); CHLORIDE 104 MEQ/L (98-107); CREATININE 0.95 MG/DL (0.60-1.30); GLOMERULAR FILTRATION RATE 88 ML/MIN (>89); GLUCOSE,RANDOM 95 MG/DL (74-106); MAGNESIUM 1.8 MG/DL (1.5-2.5); SODIUM (NA) 137 MEQ/L (136-145)
[2017-11-26 18:16] LABS: ALT (GPT) 35 U/L (12-78)
[2017-11-26 18:20] LABS: ALKALINE PHOSPHATASE 92 U/L (45-117); TOTAL BILIRUBIN ADULT 0.7 MG/DL (0.2-1.0); TOTAL PROTEIN 8.6 GM/DL (6.4-8.2); TROPONIN I LESS THAN 0.02 NG/ML (0.02-0.05)
[2017-11-26] MEDS ORDERED: LIDOCAINE VISCOUS 2% SOLN 15 ML UDC PO ONE (18:45)
[2017-11-26] MEDS ORDERED: SODIUM CHLORIDE 0.9% FLUSH 10 ML FLUSH IV FLUSH PRN (18:45)
[2017-11-26] MEDS ORDERED: ALUMINUM/MAGNESIUM/SIMETH 30 ML CUP PO ONE (18:45)
[2017-11-26] MEDS ORDERED: IOHEXOL 350 MG/ML 10 ML VIAL (for RAD DIAG) IVCONTRAST ONE (19:00)
--- NOTE | 2017-11-26 19:27 | RADRPT ---
EXAM DATE/TIME: 11/26/2017 18:57 [place] COMPARISON: No previous studies available for comparison. INDICATIONS : Left upper abdomen pain today. IV CONTRAST: 95 cc Omnipaque 350 (iohexol) IV ORAL CONTRAST: No oral contrast ingested. RADIATION DOSE: 6.64 CTDIvol (mGy) MEDICAL HISTORY : Pancreatitis. Hypertension. SURGICAL HISTORY : None. ENCOUNTER: Initial ACUITY: 1 day PAIN SCALE: 9/10 LOCATION: Left upper quadrant TECHNIQUE: Volumetric scanning of the abdomen and pelvis was performed. Using automated exposure control and ad justment of the mA and/or kV according to patient size, radiation dose was kept as low as reasonably achievable to obtain optimal diagnostic quality images. DICOM format image data is available electro nically for review and comparison. FINDINGS: LOWER LUNGS: The visualized lower lungs are clear. LIVER: Homogeneous density without lesion. There is no dilation of the biliary tree. No calcified gallston es. SPLEEN: Normal size without lesion. PANCREAS: Within normal limits. KIDNEYS: Normal in size and shape. There is no mass, stone or hydronephrosis. ADRENAL GLANDS: Within normal limits. VASCULAR: There is no aortic aneurysm. BOWEL/MESENTERY: The stomach, small bowel, and colon demonstrate no acute abnormality. There is no free intraperitone al air or fluid. ABDOMINAL WALL: Within normal limits. RETROPERITONEUM: There is no lymphadenopathy. BLADDER: No wall thickening or mass. REPRODUCTIVE: Within normal limits. INGUINAL: There is no lymphadenopathy or hernia. MUSCULOSKELETAL: Within normal limits for patient age. CONCLUSION: 1. No acute findings. Colonic diverticula without evidence for diverticulitis. Jc Pike MD on November 26, 2017 at 19:22 Board Certified Radiologist. This report was verified electronically.
[2017-11-26] MEDS ORDERED: ZANT300T PO (19:33)
[2017-11-26] MEDS ORDERED: REGL10TA5 PO (19:33)
--- NOTE | 2017-11-27 15:55 | EKG ---
Date Performed: 11/26/2017 Time Performed: 16:46:24 PTAGE: 37 years EKG: Sinus rhythm NORMAL ECG PREVIOUS TRACING : 10/09/2017 17.53 Compared to previous tracing, heart rate has increased. DOCTOR: Juan Stack Interpretating Date/Time 11/27/2017 15:55:05
== END 2017-11-26 19:56 | disposition home or self-care (01) ==
LOC: NED 15:47 → NEPE 19:56
DX: K29.70 Gastritis, unspecified, without bleeding (principal); D72.829 Elevated white blood cell count, unspecified; J45.909 Unspecified asthma, uncomplicated; F41.9 Anxiety disorder, unspecified; F32.9 Major depressive disorder, single episode, unspecified; I10 Essential (primary) hypertension; F17.200 Nicotine dependence, unspecified, uncomplicated; Z86.718 Personal history of other venous thrombosis and embolism; Z87.19 Personal history of other diseases of the digestive system
CPT/HCPCS: 71046; 74177; 80053; 82550; 82552; 83690; 83735; 84484; 85025; 85610; 85730; 93005; 96374; 96375; 99285; J2405; J7030; Q9967

== ENCOUNTER 2018-06-19 19:08 | Inpatient (IN) ==
[2018-06-20 01:34] LABS: Baso # (Auto) 0.1 th/mm3 (0.0-0.2); Baso % (Auto) 0.7 % (0.0-2.0); Eos # (Auto) 0.1 th/mm3 (0.0-0.4); Eos % (Auto) 1.4 % (0.0-4.0); Hemoglobin 15.1 gm/dL (13.0-17.0); Lymph # (Auto) 4.2 th/mm3 (1.0-4.8); Lymph % (Auto) 40.6 % (9.0-44.0); Mean Corpuscular HGB Conc 35.8 % (32.0-36.0); Mean Corpuscular Hemoglobin 35.1 pg (27.0-34.0); Mean Platelet Volume 9.1 fL (7.0-11.0); Mono # (Auto) 0.9 th/mm3 (0.0-0.9); Mono % (Auto) 8.8 % (0.0-8.0); Neut # (Auto) 5.1 th/mm3 (1.8-7.7); Neut % (Auto) 48.5 % (16.0-70.0); Platelet Count 199 th/mm3 (150-450); Red Blood Count 4.29 mil/mm3 (4.50-5.90); Red Cell Distribution Width 13.7 % (11.6-17.2); White Blood Count 10.5 th/mm3 (4.0-11.0)
--- NOTE | 2018-06-20 01:44 | US ---
EXAM DATE: 06/20/2018 11:52 PM EDT AGE/SEX: 37 years / Male INDICATIONS: Right leg pain. CLINICAL DATA: This is the patient's subsequent encounter. Patient reports that signs and symptoms h ave been present for 1 week and indicates a pain score of 10/10. MEDICAL/SURGICAL HISTORY: Pancreatitis. Gastritis. . Achilles tendon. COMPARISON: No prior exams available for comparison. TECHNIQUE: Venous ultrasound of both lower extremities was performed from the inguinal ligament to t he proximal calf. Real-time, color Doppler and spectral tracing, compression and augmentation techni ques were used. FINDINGS: Normal compression of the deep venous system from the inguinal region to the proximal calf . No echogenic clot is seen. Normal response of the venous system to augmentation and respiration. CONCLUSION: No venous thrombosis is identified within the right lower extremity. Electronically signed by: Fernando Gage MD 06/20/2018 1:43 AM EDT
[2018-06-20 02:05] LABS: Activated Partial Thrombo Time 22.7 sec (24.3-30.1); INR 1.1 Ratio; Prothrombin Time 10.7 sec (9.8-11.6)
[2018-06-20 02:08] LABS: Anion Gap 11 meq/L (5-15)
[2018-06-20 02:24] LABS: Alanine Aminotransferase 27 U/L (12-78); Albumin 4.1 g/dL (3.4-5.0); Alkaline Phosphatase 78 U/L (45-117); Aspartate Aminotransferase 22 U/L (15-37); Blood Urea Nitrogen 17 mg/dL (7-18); Carbon Dioxide 27.2 meq/L (21.0-32.0); Chloride 102 meq/L (98-107); Glomerular Filtration Rate Greater Than 89 mL/min (>89); Glucose,Random 109 mg/dL (74-106); Lipase 171 U/L (73-393); Potassium 3.4 meq/L (3.5-5.1); Sodium 140 meq/L (136-145); Total Protein 7.5 g/dL (6.4-8.2)
[2018-06-20 05:22] LABS: Creatine Kinase 218 U/L (39-308)
[2018-06-20 05:36] LABS: Creatine Kinase MB 1.8 ng/mL (0.5-3.6)
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
[2018-06-20 08:40] LABS: Amphetamine Screen,Urine Neg (Neg); Barbiturate Screen,Urine Neg (Neg); Cannabinoid Screen,Urine Pos (Neg); Cocaine Screen,Urine Neg (Neg)
--- NOTE | 2018-06-20 08:48 | ECG ---
Date Performed: 06/20/2018 Time Performed: 01:04:10 PTAGE: 37 years EKG: SINUS BRADYCARDIA ST ELEVATION CONSISTENT WITH INJURY, PERICARDITIS, OR EARLY REPOLARIZATIO N NONSPECIFIC ST & T-WAVE ABNORMALITY ABNORMAL ECG PREVIOUS TRACING : 11/26/2017 16.46 Compared to previous tracing, heart rate has slowed, inferi or and anterolateral ST elevation is now present. DOCTOR: Juan Stack Interpretating Date/Time 06/20/2018 08:47:50
[2018-06-20 08:53] LABS: Opiate Screen,Urine Neg (Neg)
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
[2018-06-20] MEDS ORDERED: Aluminum/Magnesium/Simethacone Susp 30 ML UDC PO PRN (16:54)
[2018-06-21 08:40] LABS: Anion Gap 10 meq/L (5-15); Blood Urea Nitrogen 16 mg/dL (7-18); Calcium 9.4 mg/dL (8.5-10.1); Carbon Dioxide 24.9 meq/L (21.0-32.0); Chloride 105 meq/L (98-107); Glomerular Filtration Rate Greater Than 89 mL/min (>89); Glucose,Random 102 mg/dL (74-106); Potassium 4.1 meq/L (3.5-5.1); Sodium 140 meq/L (136-145)
[2018-06-21 08:41] LABS: Cholesterol 187 mg/dL (120-200); Triglycerides 146 mg/dL (42-150)
[2018-06-21 08:51] LABS: Chol/HDL Ratio 4.59 Ratio; HDL Cholesterol 40.7 mg/dL (40.0-60.0); LDL Cholesterol,Calculated 117 mg/dL (0-99)
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
[2018-06-21] MEDS ORDERED: Acetaminophen 325 MG Tablet PO PRN (13:13)
[2018-06-21] MEDS ORDERED: Melatonin 5 MG Tablet PO PRN (13:13)
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
[2018-06-21] MEDS: Ibuprofen 400 MG Tablet PO PRN (18:13)
[2018-06-21] MEDS: Baclofen 10 MG Tablet PO SCH ×2 (18:15→20:54)
--- NOTE | 2018-06-21 20:30 | US ---
EXAM DATE: 06/21/2018 12:00 AM EDT AGE/SEX: 37 years / Male INDICATIONS: Right calf pain. Evaluate the area of concern. CLINICAL DATA: This is the patient's subsequent encounter. Patient reports that signs and symptoms h ave been present for 1 week and indicates a pain score of 4/10. MEDICAL/SURGICAL HISTORY: Pancreatitis. Gastritis. . Achilles tendon repair. COMPARISON: None. FINDINGS: Examination of the patient's right lower extremity with dedicated and focused attention to the area o f the clinical concern does not demonstrate any mass or fluid collections or any significant patholog y. CONCLUSION: 1. Unremarkable study. Electronically signed by: Dom Ordonez MD 06/21/2018 8:29 PM EDT
--- NOTE | 2018-06-21 20:46 | ECG ---
Date Performed: 06/20/2018 Time Performed: 14:57:08 PTAGE: 37 years EKG: SINUS BRADYCARDIA WITH SINUS ARRHYTHMIA MARKED ST ELEVATION, CONSIDER INFERIOR INJURY AC LOWER BRULE PA PREVIOUS TRACING : 06/20/2018 01.04 Since the previous tracing, no significant change not ed DOCTOR: Dewayne Nicole Interpretating Date/Time 06/21/2018 20:46:05
[2018-06-21] MEDS: Famotidine 20 MG Tablet PO SCH (20:54)
[2018-06-21] MEDS ORDERED: QUEtiapine 25 MG Tablet PO SCH (21:00)
[2018-06-22] MEDS: Famotidine 20 MG Tablet PO SCH ×2 (09:12→20:51)
[2018-06-22] MEDS: Ibuprofen 400 MG Tablet PO PRN ×3 (09:12→20:55)
[2018-06-22] MEDS: Baclofen 10 MG Tablet PO SCH ×2 (13:27→20:53)
--- NOTE | 2018-06-22 15:02 | P.PNPSY ---
Subjective Chief Complaint: Depression Remarks: Reviewed electronic medical records and discussed case with staff. Follow-up was conducted in patient's room with YEVGENIY Rocha present. His nurse denies any behavioral disturbances but seems to have improved after his as needed dose of Atarax. She reports he has been compliant with his medications. Patient presents as anxious and when asked how he is doing states "I am here". Reports that he is bored and running out of things to do. He states that he did not sleep really great but that his appetite's been good. He denies any side effects from the medication. I checked his record and found that he does indeed have melatonin as needed and requested that his nurse let him know he can ask for this tonight if he has trouble sleeping once again. Mental Status Examination Appearance: Appropriate Consciousness: Alert Orientation: x4 Motor Activity: Other (No motor abnormalities noted) Speech: Unremarkable Language: Adequate Fund of Knowledge: Adequate Attention and Concentration: Adequate Memory: Unremarkable Mood: Anxious, Other (Depressed) Affect: Appropriate Thought Process & Associations: Intact, Logical, Goal directed, Linear Thought Content: Appropriate Hallucination Type: None Delusion Type: None Suicidal Ideation: No Suicidal Plan: No Suicidal Intention: No Homicidal Ideation: No Homicidal Plan: No Homicidal Intention: No Insight: Adequate Judgment: Impulsive Assessment and Plan - Assessment (1) Bipolar depression Code(s): F31.30 - Bipolar disorder, current episode depressed, mild or moderate severity, unspecified Status: Acute - Plan Plan: Patient will be reevaluated Sunday by the attending psychiatrist. Continue with current treatment plan. Justification for Continued Inpatient Stay: Moving this patient to a less restrictive environment would likely result in decompensation. Request Healthcare Surrogate/Guardian Advocate?: No
--- NOTE | 2018-06-22 16:43 | P.PN ---
Subjective Interval history: Follow-up visit right calf pain, bradycardia. Patient seen and examined today. Reports he continues to have right calf pain, continues to not able to walk properly. States that he was seen by physical therapy and did some stretching exercises but he continues to have pain and unable to walk. Discussed with patient plan for an MRI and possible orthopedic consult for him. Physical Exam Vital signs: Vital Signs 06/21/18 19:58 06/22/18 05:50 Temperature 98.3 F 97.6 F Pulse Rate 79 60 Respiratory Rate 17 16 Blood Pressure 152/89 H 146/81 H Pulse Oximetry 99 94 L Intake & Output 06/21/18 06/22/18 06/22/18 18:59 06:59 18:59 Intake Total 240 / 240 Balance 240 / 240 Intake: Oral 240 / 240 Narrative: GENERAL: This is a well-nourished, well-developed patient, in no apparent distress. SKIN: Warm and dry. HEENT: Normocephalic. Pupils equal round and reactive. Nose without bleeding. Airway patent. NECK: Trachea midline. CARDIOVASCULAR: Regular rate and rhythm without murmurs, gallops, or rubs. RESPIRATORY: Clear to auscultation. Breath sounds equal bilaterally. No wheezes , rales, or rhonchi. GASTROINTESTINAL: Abdomen soft, non-tender, nondistended. Bowel Sounds normoactive x4. MUSCULOSKELETAL: Extremities without clubbing, cyanosis. Right calf edema +1, this is not appear to have erythema, positive tenderness to palpate, appears to be muscular and not water retention. Tenderness to dorsi and plantar flexion. Pulses strong and palpable right lower extremity. NEUROLOGICAL: Awake and alert. Oriented to place, person. No focal neuro deficit. Moves all extremities. Normal speech. Results - Labs CBC & Chem 7: 06/20/18 01:17 06/21/18 07:03 - Imaging Impressions Lower Extremity Ultrasound 06/21/18 00:00 CONCLUSION: 1. Unremarkable study. Assessment and Plan - Plan Patient is a 37-year-old male with past medical history of pancreatitis, hx DVT left upper extremity, Meckel's diverticulum, gastritis, anxiety, history of pericarditis who initially came into the hospital for complaints of right cough pain and swelling for several days. Patient also complains of depression, has not been sleeping well, severe anxiety. Thoughts of harming himself. He is now admitted to inpatient psychiatry unit for further evaluation. Consulted for assistance with medical management. Suicidal ideation, depression, anxiety -Managed by psychiatry team Right calf pain Possible gastrocnemius strain -Venous Doppler study no evidence of DVT -Ibuprofen, baclofen -Physical therapy eval and treat -Ultrasound soft tissue ordered negative -MRI ordered -Orthopedic consult to evaluate for further recommendations. -Might benefit with calf compression sleeve. TEDS for now Bradycardia Abnormal EKG -Initial EKG with sinus bradycardia, ST elevation consistent with injury, pericarditis or early repolarization nonspecific ST and T wave abnormality -EKG reviewed, sinus bradycardia, rate of 52 with sinus arrhythmia, marked elevation consider inferior injury, acute HI -Reports being active at home, maintains weight through running and exercises -States history of pericarditis, states cardiac cath is been done on him 2 years ago and did not show anything abnormal -On exam patient is in sinus rhythm, denies any chest pain. First troponin was negative -Hypokalemia, replacement provided, potassium improved. Lactic acid 2.0, TSH within normal, free T4 within normal -Continue to monitor. Repeat EKG GERD -Pepcid Tobacco abuse Alcohol abuse Marijuana and other substance abuse -Patient was counseled. U tox positive for cannabinoids. -Nicotine patch DVT prop early ambulation Full code Discussed with patient, nurse Discharge Planning: DC disposition by primary team
[2018-06-22] MEDS ORDERED: QUEtiapine 100 MG Tablet PO SCH (21:00)
[2018-06-23] MEDS: Ibuprofen 400 MG Tablet PO PRN (01:58)
[2018-06-23] MEDS: Baclofen 10 MG Tablet PO SCH ×2 (02:00→06:33)
[2018-06-23 05:56] VITALS: BP 139/70; PULSE 58; RESP 16; TEMP 98; O2SAT 99
[2018-06-23] MEDS: Famotidine 20 MG Tablet PO SCH (08:12)
[2018-06-23] MEDS ORDERED: Aspirin 325 MG Tablet PO ONE (10:20)
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
[2018-06-23 12:07] LABS: Creatine Kinase 69 U/L (39-308)
--- NOTE | 2018-06-23 15:47 | ECG ---
Date Performed: 06/23/2018 Time Performed: 09:41:41 PTAGE: 37 years EKG: Sinus rhythm NONSPECIFIC T-WAVE ABNORMALITY BORDERLINE ECG Compared to PREVIOUS TRACING , previously seen rather diffuse ST elevation no longer present. Previou s changes could be related to pericarditis vs. early repolarization. Clinical correlation recommended . PREVIOUS TRACIN06/20/2018 14.57 DOCTOR: Jerry Rodríguez Interpretating Date/Time 06/23/2018 15:45:14
== END 2018-06-23 10:40 | disposition short-term general hospital (02) ==
LOC: NEPC 19:08 → NEDA 06-20 16:51 → H260 06-20 18:07
PROVIDERS: ADMIT Psychiatry & Neurology Psychiatry; ATTEND Psychiatry & Neurology Psychiatry

== ENCOUNTER 2018-06-23 10:53 | Observation (INO) ==
[2018-06-23] MEDS ORDERED: Bisacodyl 10 MG Supp RECTAL PRN (11:53)
[2018-06-23] MEDS ORDERED: Aspirin 325 MG Tablet PO ONE (11:57)
--- NOTE | 2018-06-23 12:26 | XR ---
EXAM DATE: 06/23/2018 12:00 AM EDT AGE/SEX: 37 years / Male INDICATIONS: Chest pain. CLINICAL DATA: This is the patient's subsequent encounter. Patient reports that signs and symptoms h ave been present for 1 day and indicates a pain score of 7/10. MEDICAL/SURGICAL HISTORY: None. None. COMPARISON: [facility] [place]ST [place] & LAT, 11/26/2017. . FINDINGS: A single AP view of the chest demonstrates the lungs to be symmetrically aerated without evidence of mass, infiltrate or effusion. The cardiomediastinal contours are unremarkable. Osseous structures a re intact. CONCLUSION: Negative examination. Electronically signed by: Miranda Baxter MD 06/23/2018 12:25 PM EDT
--- NOTE | 2018-06-23 12:42 | P.HPIM ---
History of Present Illness Service: [facility] Primary Care Physician: UNKNOWN Chief Complaint: Chest pain History of Present Illness: 37-year-old male with a medical history significant for pancreatitis, gastritis , anxiety and history of pericarditis who was admitted to the psychiatric unit for depression and suicidal ideation. This morning the patient complained of severe crushing chest pain, he is blood pressure was noted to be 178/103, heart rate in the 140s. EKG was done and there were concern for ST abnormalities. A Halicat was called and the patient was admitted to the medical floor. On my evaluation, he complains of severe pressure type pain. Admits to feeling anxious. He just had an episode of vomiting. No diaphoresis. He appears to be shaky. He reports his last drink was 6 days ago when he drank heavily and had suicidal ideation. He denies illicit drug use. Inpatient Certification: I certify that the inpatient services were ordered in accordance with Medicare regulations governing the order. This includes certification that hospital inpatient services are reasonable and necessary and in the case of services not specified as inpatient-only under 42 CFR 419.22(n), that they are appropriately provided as inpatient services in accordance to with the 2-midnight benchmark under 43 CFR 412.3(e) Estimated Total Length of Stay (Days): 3 Plans for Post Hospital Care: Home Review of Systems All other systems reviewed negative except as stated in HPI PMFSH - History History Provided By: Patient - Medical History Medical History: Medical History (Last Reviewed 06/23/18 @ 17:34 by La Hunter MD) History of Meckel's diverticulum History of gastritis History of pancreatitis Pericarditis - Surgical History Surgical History: Surgical History (Last Reviewed 06/23/18 @ 17:34 by La Hunter MD) History of Achilles tendon repair History of appendectomy - Family History Family History: Family History (Last Reviewed 06/23/18 @ 17:34 by La Hunter MD) Other Family history unknown - Social History I have reviewed the patient's Social History: Yes - Tobacco History Second Hand Smoke Exposure: Yes Smoking Status: Current every day smoker Tobacco Type: Cigarettes - Alcohol History How Often Do You Have a Drink Containing Alcohol: 2 to 4 times a month - Substance Use History Substance History: Past History - Substance Use Type Marijuana Status: Active Route Used: Inhalation Frequency: everyother day Reason for Use: Calm Down, Sleep Comment: gastristis - Immunization History Tetanus Immunization Year if Known: 2005 Medications and Allergies Active Medications: Active Medications Al Hydroxide/Mg Hydroxide (Milk Of Magnesia Liq) 30 ml PO Q12H PRN PRN Reason: Mild Constipation Bisacodyl (Dulcolax Supp) 10 mg RECTAL DAILY PRN PRN Reason: SEVERE CONSITIPATION Enoxaparin Sodium (Lovenox Inj) 40 mg SQ Q24H [facility] Sodium Chloride (Ns Inj) 1,000 mls @ 100 mls/hr IV.CONT .Q10H RAF Lactulose (Lactulose Liq) 30 ml PO DAILY PRN PRN Reason: SEVERE CONSITIPATION Ondansetron HCl (Zofran Inj) 4 mg IV.PUSH Q6H PRN PRN Reason: NAUSEA OR VOMITING Senna/Docusate Sodium (Katt-Colace) 1 tab PO BID RAF Sennosides (Senokot) 17.2 mg PO Q12H PRN PRN Reason: Moderate Constipation Allergies Allergy/AdvReac Type Severity Reaction Status Date / Time penicillin G Allergy Severe rash Verified 06/01/18 17:39 morphine Allergy Intermediate rash Verified 06/01/18 17:39 Home Medications Medication Instructions Recorded Confirmed Type No Known Home Medications 06/19/18 06/23/18 History Exam Vital signs: Vital Signs 06/23/18 11:19 06/23/18 11:25 Temperature 97.8 F Pulse Rate 102 H Respiratory Rate 24 Blood Pressure 168/111 H 157/97 H Pulse Oximetry 98 Intake & Output 06/22/18 06/23/18 06/23/18 18:59 06:59 18:59 Weight 80 kg Other: Date of Last Bowel Movement 06/23/18 Narrative: GENERAL: This is a well-nourished, well-developed patient who appears uncomfortable. Reports left-sided sharp chest pain with deep breathing. CARDIOVASCULAR: Normal rate and regular rhythm without murmurs, gallops, or rubs. RESPIRATORY: Good respiratory efforts. Breath sounds equal and clear to auscultation bilaterally. GASTROINTESTINAL: Abdomen soft, tender to palpation in the midepigastric region. Normal bowel sounds. MUSCULOSKELETAL: Extremities without cyanosis, or edema. NEURO: Alert & Oriented x4 to person, place, time, situation. Moves all ext x4 PSYCH: Anxious. Results - Labs CBC & Chem 7: 06/23/18 12:45 06/23/18 12:45 - Imaging Impressions Chest X-Ray 06/23/18 00:00 CONCLUSION: Negative examination. Caprini VTE Risk Assessment Caprini VTE Risk Assessment: Moderate/High Risk (score >= 2) Caprini Risk Assessment Model: Point Value = 1 Point Value = 2 Point Value = 3 Point Value = 5 Age 41-60 Minor surgery BMI > 25 kg/m2 Swollen legs Varicose veins or History of unexplained or recurrent spontaneous Oral contraceptives or hormone replacement Sepsis (< 1 month) Serious lung disease, including pneumonia (< 1 month) Abnormal pulmonary function Acute myocardial infarction Congestive heart failure (< 1 month) History of inflammatory bowel disease Medical patient at bed rest Age 61-74 Arthroscopic surgery Major open surgery (> 45 min) Laparoscopic surgery (> 45 min) Malignancy Confined to bed (> 72 hours) Immobilizing plaster cast Central venous access Age >= 75 History of VTE Family history of VTE Factor V Leiden Prothrombin [id number] Lupus anticoagulant Anticardiolipin antibodies Elevated serum homocysteine Heparin-induced thrombocytopenia Other congenital or acquired thrombophilia Stroke (< 1 month) Elective arthroplasty Hip, pelvis, or leg fracture Acute spinal cord injury (< 1 month) Prophylaxis Regimen: Total Risk Factor Score Risk Level Prophylaxis Regimen 0-1 Low Early ambulation 2 Moderate Order ONE of the following: *Sequential Compression Device (SCD) *Heparin 5000 units SQ BID 3-4 Higher Order ONE of the following medications: *Heparin 5000 units SQ TID *Enoxaparin/Lovenox 40 mg SQ daily (WT < 150 kg, CrCl > 30 mL/min) *Enoxaparin/Lovenox 30 mg SQ daily (WT < 150 kg, CrCl > 10-29 mL/min) *Enoxaparin/Lovenox 30 mg SQ BID (WT < 150 kg, CrCl > 30 mL/min) AND/OR *Sequential Compression Device (SCD) 5 or more Highest Order ONE of the following medications: *Heparin 5000 units SQ TID (Preferred with Epidurals) *Enoxaparin/Lovenox 40 mg SQ daily (WT < 150 kg, CrCl > 30 mL/min) *Enoxaparin/Lovenox 30 mg SQ daily (WT < 150 kg, CrCl > 10-29 mL/min) *Enoxaparin/Lovenox 30 mg SQ BID (WT < 150 kg, CrCl > 30 mL/min) AND *Sequential Compression Device (SCD) Assessment and Plan - Plan 37-year-old male sent from the psychiatric unit for chest pain and abnormal EKG. Chest pain/abnormal EKG: - I reviewed the EKG with Dr. bell of cardiology. EKG findings suggests pericarditis. He has a known history of pericarditis in the past. - GI etiology not yet ruled out. Cardiac enzymes negative. Chest x-ray negative. Normal heart cath about 4 years ago per EMR. - Will obtain lipase to rule out pancreatitis. - Treat with NSAID, aspirin. - Known history of gastritis. Add Protonix. History of gastritis: - Protonix. Will consider GI consult if symptoms persist. Suicidal ideation, depression, anxiety -Patient was transferred from the inpatient psychiatry. Consult psychiatry for assistance. Suspect anxiety may be contributing to chest pain symptoms above. -Ativan as needed. Tobacco abuse Alcohol abuse Marijuana -Patient was counseled. U tox positive for cannabinoids.
[2018-06-23] MEDS: Enoxaparin Inj 40 MG/0.4 ML Syringe SQ SCH (12:45)
[2018-06-23] MEDS ORDERED: Ketorolac Inj 30 MG/ML (IVP) Vial IV.PUSH PRN (13:19)
[2018-06-23 13:25] LABS: Hematocrit 46.6 % (39.0-51.0); Mean Corpuscular HGB Conc 34.4 % (32.0-36.0); Mean Corpuscular Hemoglobin 34.1 pg (27.0-34.0); Mean Corpuscular Volume 99.2 fL (80.0-100.0); Mean Platelet Volume 9.7 fL (7.0-11.0); Platelet Count 195 th/mm3 (150-450); Red Blood Count 4.69 mil/mm3 (4.50-5.90); Red Cell Distribution Width 13.9 % (11.6-17.2); White Blood Count 7.5 th/mm3 (4.0-11.0)
[2018-06-23 13:48] LABS: Anion Gap 10 meq/L (5-15); Blood Urea Nitrogen 20 mg/dL (7-18); Calcium 9.8 mg/dL (8.5-10.1); Carbon Dioxide 22.7 meq/L (21.0-32.0); Chloride 107 meq/L (98-107); Glomerular Filtration Rate Greater Than 89 mL/min (>89); Glucose,Random 92 mg/dL (74-106); Sodium 140 meq/L (136-145)
[2018-06-23] MEDS: Sod Chloride 0.9% Inj 1,000 ML IV.CONT SCH ×2 (14:13→22:02)
--- NOTE | 2018-06-23 15:42 | P.DIET ---
Nutritional Evaluation Type of nutrition evaluation: initial Nutrition screening: Weight Loss > 10 lbs Subjective Subjective Comments: Pt reports a good appetite and also reports an unintentional wt loss. Objective - Diagnosis Halicat - Objective [place] body weight: 70 kg % IBW: 126 Body Weight Used for Calculations: IBW Energy Needs - Lower Range (kCal/kg): 28 Energy Needs - Upper Range (kCal/kg): 33 Lower Limit kCal/kg (kCals): 1,960 Upper Limit kCal/kg (kCals): 2,310 Lower Limit Protein Factor (Grams per Kg): 1.1 Upper Limit Protein Factor (Grams per Kg): 1.3 Lower Protein Needs (Protein): 77 Upper Protein Needs (Protein): 91 Fluid Factor (ml/kg): 30 Estimated Fluid Needs (ml): 2,100 Dietitian Reviewed in Medical Record: Current diet, Curent medications, Intake & Output, Labs, Medical history Diet Order: NPO Objective Comments: PMH: gastritis, Meckel's diverticulum, pancreatitis, pericarditis Assessment Assessment: Pt at nutritional risk r/t dx and reported unintentional wt loss. Nutritional needs as assessed above. Pt is at 126% his ideal body wt with a BMI of 29.5. Pt is newly admitted, currently NPO. Will monitor diet advancement, po intake for adequacy. Dietitian to Monitor: Lab values, Intake & Output, Weight change, Diet advancement, Medical course
[2018-06-23] MEDS: Senna/Docusate Sodium 8.6/50 MG Tablet PO SCH (22:02)
[2018-06-23] MEDS ORDERED: Melatonin 5 MG Tablet PO SCH (22:30)
[2018-06-23] MEDS ORDERED: QUEtiapine 100 MG Tablet PO SCH (22:30)
[2018-06-23] MEDS: Baclofen 10 MG Tablet PO SCH (22:39)
[2018-06-24] MEDS: Baclofen 10 MG Tablet PO SCH ×2 (06:23→14:18)
[2018-06-24] MEDS ORDERED: Aspirin 325 MG Tablet PO SCH (09:00)
[2018-06-24] MEDS: Senna/Docusate Sodium 8.6/50 MG Tablet PO SCH (09:59)
[2018-06-24] MEDS: Sod Chloride 0.9% Inj 1,000 ML IV.CONT SCH (10:00)
[2018-06-24 11:17] VITALS: O2SAT 100
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
[2018-06-24] MEDS: Enoxaparin Inj 40 MG/0.4 ML Syringe SQ SCH (14:18)
--- NOTE | 2018-06-24 15:03 | P.PNIM ---
Subjective Interval history: Patient reports he is feeling okay today. He states he only feels the sharp pain more so when he starts thinking or talking about his psychiatric condition. He is eating well. No nausea or vomiting. Physical Exam Vital signs: Vital Signs 06/23/18 16:00 06/23/18 17:04 06/23/18 18:00 Temperature Pulse Rate 60 49 L 78 Respiratory Rate Blood Pressure Pulse Oximetry 06/23/18 19:00 06/23/18 20:00 06/23/18 21:00 Temperature 97.6 F Pulse Rate 62 62 66 Respiratory Rate 16 Blood Pressure 153/87 H Pulse Oximetry 99 06/23/18 21:49 06/23/18 22:00 06/23/18 23:00 Temperature Pulse Rate 54 L 58 L Respiratory Rate 16 Blood Pressure 148/85 H Pulse Oximetry 97 98 06/24/18 00:00 06/24/18 01:00 06/24/18 02:00 Temperature Pulse Rate 52 L 50 L 50 L Respiratory Rate Blood Pressure Pulse Oximetry 06/24/18 03:00 06/24/18 04:00 06/24/18 05:00 Temperature Pulse Rate 50 L 42 L 46 L Respiratory Rate 16 Blood Pressure 120/52 L Pulse Oximetry 98 06/24/18 06:00 06/24/18 07:00 06/24/18 09:50 Temperature 98 F Pulse Rate 50 L 46 L 60 Respiratory Rate 20 Blood Pressure 124/81 Pulse Oximetry 100 06/24/18 11:00 Temperature 98.7 F Pulse Rate 69 Respiratory Rate 16 Blood Pressure 151/90 H Pulse Oximetry 100 Intake & Output 06/23/18 06/24/18 06/24/18 18:59 06:59 18:59 Intake Total 240 / 240 1240 / 1240 1999 Output Total 800 / 800 300 / 300 Balance -560 / -560 940 / 940 1999 Weight 88 kg 80 kg Intake: IV 1000 / 1000 1999 NS Inj 1,000 ML @ 100 mls/hr IV 1000 / 1000 1999 .CONT .Q10H [facility] Rx#:[id number] Oral 240 / 240 240 / 240 Output: Urine 800 / 800 300 / 300 Other: Date of Last Bowel Movement 06/23/18 06/23/18 06/23/18 # Bowel Movements 0 Weight On Admission 88 kg Narrative: GENERAL: This is a well-nourished, well-developed patient in no acute distress CARDIOVASCULAR: Normal rate and regular rhythm without murmurs, gallops, or rubs. RESPIRATORY: Good respiratory efforts. Breath sounds equal and clear to auscultation bilaterally. GASTROINTESTINAL: Abdomen soft, nontender, nondistended. Normal bowel sounds. MUSCULOSKELETAL: Extremities without cyanosis, or edema. NEURO: Alert & Oriented x4 to person, place, time, situation. Moves all ext x4 PSYCH: Anxious. Crying spells Results - Labs CBC & Chem 7: 06/23/18 12:45 06/23/18 12:45 Laboratory Results - last 24 hr 06/23/18 06/23/18 06/23/18 12:45 12:45 18:20 D-Dimer Quant (PE/DVT) 0.24 Troponin I Less than 0.02 L Lipase 187 Assessment and Plan - Plan 37-year-old male sent from the psychiatric unit for chest pain and abnormal EKG. Chest pain/abnormal EKG: - I reviewed the EKG with Dr. bell of cardiology. EKG findings suggests pericarditis. He has a known history of pericarditis in the past. - Cardiac enzymes negative. Chest x-ray negative. Normal heart cath about 4 years ago per EMR. -Lipase and d-dimer negative. - Known history of gastritis. Continue Protonix. -The patient's symptoms is more likely related to anxiety. No obvious organic cause and his symptoms comes on when he gets anxious about his current psychiatric condition. History of gastritis: - Protonix. Suicidal ideation, depression, anxiety -Patient was transferred from the inpatient psychiatry. Overdose attempt with Tylenol. Appreciate psychiatry consult. Agreed that he needs to return to psychiatry to continue treatment. -Meds per psychiatry. Tobacco abuse Alcohol abuse Marijuana -Patient was counseled. U tox positive for cannabinoids. Discharge Planning: Discharge patient to inpatient psychiatry Condition on discharge: Improved Regular Diet as tolerated Ad Tahira activity Rx written: Med rec Follow-up with primary care physician
--- NOTE | 2018-06-24 15:43 | ECG ---
Date Performed: 06/23/2018 Time Performed: 20:30:08 PTAGE: 37 years EKG: Sinus rhythm Extensive ST elevation suggests pericarditis Abnormal ECG PREVIOUS TRACING : 06/23/2018 11.50 Since the previous tracing, no significant change noted but Clinical correlation is recommended DOCTOR: Vlad Mauricio Interpretating Date/Time 06/24/2018 15:43:07
--- NOTE | 2018-06-24 15:43 | ECG ---
Date Performed: 06/23/2018 Time Performed: 11:50:12 PTAGE: 37 years EKG: Sinus rhythm . Possible inferior infarct - age undetermined Lateral ST elevation, CONSIDER ACUTE INFARCT Diffuse m ild ST elevation suggests early repolarization or pericarditis Abnormal ECG PREVIOUS TRACING :06/23/2018 @09.41 Clinical correlation is recommended DOCTOR: Vlad Mauricio Interpretating Date/Time 06/24/2018 15:42:53
[2018-06-24 15:48] VITALS: BP 157/84; PULSE 81; RESP 18; TEMP 98.1
== END 2018-06-24 17:14 ==
LOC: INTOOBSV 10:53 → HCIS 10:53
PROVIDERS: ADMIT Family Medicine; ATTEND Family Medicine

== ENCOUNTER 2018-06-24 18:01 | Inpatient (IN) ==
[2018-06-24] MEDS ORDERED: Aluminum/Magnesium/Simethacone Susp 30 ML UDC PO PRN (18:58)
[2018-06-24] MEDS ORDERED: Bisacodyl 10 MG Supp RECTAL PRN (18:58)
[2018-06-24] MEDS: Melatonin 5 MG Tablet PO SCH (21:38)
[2018-06-24] MEDS: QUEtiapine 100 MG Tablet PO SCH (21:39)
[2018-06-24] MEDS: Senna/Docusate Sodium 8.6/50 MG Tablet PO SCH (21:39)
[2018-06-24] MEDS: Baclofen 10 MG Tablet PO SCH (21:39)
[2018-06-25] MEDS: Baclofen 10 MG Tablet PO SCH ×3 (05:47→21:08)
[2018-06-25] MEDS: Senna/Docusate Sodium 8.6/50 MG Tablet PO SCH ×2 (08:49→21:08)
[2018-06-25] MEDS: Aspirin 325 MG Tablet PO SCH (09:02)
--- NOTE | 2018-06-25 11:44 | P.PNPSY ---
Subjective Remarks: Patient returning to inpatient psychiatric unit from the medical floor. The see my H&P dictated 06/20. According to the hospitalist on the medical floor "the patient's [physical] symptoms is more likely related to anxiety. No obvious organic cause and his symptoms comes on when he gets anxious about his current psychiatric condition." patient seen and examined with nurse. Chart reviewed. Case discussed with nursing staff who reports patient was asking about receiving Ativan. Case discussed in treatment team. On my examination today, the patient denies suicidal ideation. Mood is more stable. He complains of ongoing anxiety and once again asks for Ativan. Patient insists that he is "not a pill jazmyne" implying that he would not be at risk for abusing this agent. As noted previously, patient does have a history of substance use issues. I suggest seeking a non-habit forming alternative for anxiety. Patient 's demeanor then changes, and he asks about discharge tomorrow. No side effects from medications. No physical complaints. Vital Signs Temp Pulse Resp BP Pulse Ox 06/25/18 06:00 98 F 51 L 17 122/65 97 06/24/18 18:14 98.6 F 57 L 16 159/80 H 100 Intake and Output 06/24/18 06/25/18 06/25/18 22:59 06:59 14:59 Other: Weight 77.3 kg Weight On Admission 77.3 kg Labs from medical floor reviewed. Most recent EKG read as sinus rhythm with QTc 426ms, not prolonged. Review of Systems All other systems reviewed negative except as stated in HPI Mental Status Examination Appearance: Appropriate Consciousness: Alert Orientation: Person, Place (at least) Motor Activity: Other (No motor abnormalities noted. No signs of withdrawal noted.) Speech: Unremarkable Language: Adequate Fund of Knowledge: Adequate Attention and Concentration: Adequate Memory: Unremarkable (Grossly intact on clinical exam) Mood: Anxious Affect: Other (Calm. Does not appear particularly anxious.) Thought Process & Associations: Intact, Logical, Linear Thought Content: Appropriate Hallucination Type: None Delusion Type: None Suicidal Ideation: No Suicidal Plan: No Suicidal Intention: No Homicidal Ideation: No Homicidal Plan: No Homicidal Intention: No Mental Status Exam Remarks: Insight and judgment are perhaps fair. Assessment and Plan - Assessment (1) Adjustment disorder with mixed anxiety and depressed mood Code(s): F43.23 - Adjustment disorder with mixed anxiety and depressed mood Status: Acute - Plan Plan: Add daytime doses of Seroquel to assist with management of complaints of anxiety. Seroquel 25/25/100mg. I have reviewed R/B/A for meds with patient and have discussed with him that this is an off-label use of this medication. Counselor to call for collateral. Continue to monitor on the inpatient unit. Continue other medications and care as ordered. Justification for Continued Inpatient Stay: Medication changes. Risk for decompensation in less restrictive environment. Discharge Planning: Pending further observation. Possible discharge next 1-2 days. Request Healthcare Surrogate/Guardian Advocate?: No
[2018-06-25] MEDS: QUEtiapine 25 MG Tablet PO SCH (14:22)
--- NOTE | 2018-06-25 14:42 | P.TTN ---
- Patient Problems Problems: 1. Discharge planning 2. Medication compliance 3. Knowledge deficit 4. Lack of coping skills - Progress Toward Goals Provider Present: Dr. Jarett Chappell Provider Input: 06/25/18: Pt newly re-admission from medical floor (chest pain examinations reveal no organic origin per chart) pt is resuming his inpt status in psychiatry. Pt poc is to stabilize pt, return pt to his home with spouse when pt is stable and safe. Psychiatric Counselors Present: Kathy Salinas [facility] Psychiatric Therapist Input: 06/25/18: Kathy to follow-up with [facility] per this pt's progress, it is expected that pt will return to his home with spouse and family. Group Spec/RT/OT/NATHAN Present: Sudheer Sloan OT, JAC Boles Group Spec/RT/OT/NATHAN Input: 06/25/18: Pt, per his recent inpt status was attending select groups, pt is newly returned to psychiatry and has not had opportunity to attend groups as yet. Additional Input: 06/25/18: Pt is expected to be stabilized, then to return to home with his spouse and family. - Documentation Teaching Recipient: Patient
[2018-06-25] MEDS: Melatonin 5 MG Tablet PO SCH (21:08)
[2018-06-25] MEDS: QUEtiapine 100 MG Tablet PO SCH (21:08)
[2018-06-26] MEDS: Baclofen 10 MG Tablet PO SCH ×3 (06:04→21:18)
[2018-06-26] MEDS: Senna/Docusate Sodium 8.6/50 MG Tablet PO SCH ×2 (08:40→21:19)
[2018-06-26] MEDS: Aspirin 325 MG Tablet PO SCH (08:41)
[2018-06-26] MEDS: QUEtiapine 25 MG Tablet PO SCH ×2 (11:14→15:10)
--- NOTE | 2018-06-26 13:09 | P.PNPSY ---
Subjective Remarks: Patient seen and examined. Chart reviewed. Collateral obtained by counselor from reviewed. On my examination today, the patient is eager to share his homework, provided to him by the counselor. 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 He shares a piece replete with symbolism and is able to explain each component. He continues to complain of anxiety and remains somewhat perseverative on obtaining Ativan. We discuss reservations against prescription of benzodiazepines in patient with history of substance use issues. We discuss alternative pharmacotherapeutic options for management of anxiety and settle on a trial of BuSpar. He is also agreeable to further titration of Seroquel to bring the dose closer to the range associated with good therapeutic response for depressive symptomatology. The patient does display some cluster B personality traits. He denies side effects from medications. No physical complaints. He reports that the plan had been to obtain an MRI of his right leg on the medical floor, although I do not see any notation of this; I will request the hospitalist follow-up on this issue. Vital Signs Temp Pulse Resp BP Pulse Ox 06/26/18 05:50 97.2 F L 63 15 107/67 97 Labs reviewed. No new labs. Review of Systems All other systems reviewed negative except as stated in HPI Mental Status Examination Appearance: Appropriate Consciousness: Alert Orientation: Person, Place (at least) Motor Activity: Other (No abnormal motor movements noted. No signs of any withdrawal noted.) Speech: Unremarkable Language: Adequate Fund of Knowledge: Adequate Attention and Concentration: Adequate Memory: Unremarkable (Grossly intact on clinical exam) Mood: Anxious Affect: Other (Affect is fairly bright, full and reactive) Thought Process & Associations: Intact, Logical, Linear Thought Content: Appropriate Hallucination Type: None Delusion Type: None Suicidal Ideation: No Suicidal Plan: No Suicidal Intention: No Homicidal Ideation: No Homicidal Plan: No Homicidal Intention: No Mental Status Exam Remarks: Insight and judgment are fair. Assessment and Plan - Assessment (1) Adjustment disorder with mixed anxiety and depressed mood Code(s): F43.23 - Adjustment disorder with mixed anxiety and depressed mood Status: Acute - Plan Plan: Add BuSpar 10mg TID for management of anxiety and titrate Seroquel to 50/50/ 150mg for mood stabilization. R/B/A for med changes discussed with patient. Consult hospitalist as noted above. Continue to monitor on the inpatient unit. Continue other medications and care as ordered. Justification for Continued Inpatient Stay: Medication changes. Risk for decompensation in less restrictive environment. Discharge Planning: Pending psychiatric stabilization. Request Healthcare Surrogate/Guardian Advocate?: No
[2018-06-26] MEDS ORDERED: QUEtiapine 100 MG Tablet PO SCH (13:50)
--- NOTE | 2018-06-26 18:19 | P.CON ---
History of Present Illness Service: Hospitalist Primary Care Provider: UNKNOWN History of Present Illness: Mr. Mills is a 37-year-old male with past medical history of pancreatitis, hx DVT left upper extremity, Meckel's diverticulum, gastritis, anxiety, history of pericarditis who is currently under the care of psychiatry unit. Patient complained of right lower extremity edema and pain. He underwent ultrasound study on 06/19 and 06/21/2018 -both studies showed no evidence of DVT. Hospitalist service was reconsulted due to patient's symptoms of right lower extremity pain. Patient is under the impression that an MRI study was to be done. Patient is currently ambulating well. No chest pain, shortness of breath , fever or chills. No erythema or drainage on the lower extremities. Denies any changes in bowel or bladder habits. Past medical history: Meckel's diverticulum, gastritis, pancreatitis, pericarditis Past surgical history: Achilles tendon repair, appendectomy Family history: No family history heart disease or cancer. Social history: Patient is a smoker. Social drinker. Uses marijuana as well. Review of Systems All other systems reviewed negative except as stated in HPI PMFSH - History History Provided By: Patient - Medical History Medical History: Medical History (Last Reviewed 06/24/18 @ 12:07 by Alan Euceda DO) History of Meckel's diverticulum History of gastritis History of pancreatitis Pericarditis - Surgical History Surgical History: Surgical History (Last Reviewed 06/24/18 @ 12:07 by Alan Euceda DO) History of Achilles tendon repair History of appendectomy - Family History Family History: Family History (Last Reviewed 06/23/18 @ 17:34 by La Hunter MD) Other Family history unknown - Tobacco History Second Hand Smoke Exposure: Yes Tobacco Use In Past 30 Days: Yes Smoking Status: Current every day smoker Tobacco Type: Cigarettes - Alcohol History How Often Do You Have a Drink Containing Alcohol: 2 to 4 times a month - Substance Use History Substance History: Active Abuse - Substance Use Type Marijuana Status: Active Reason for Use: Calm Down, Feels Good Comment: Patient describes the marijuana helping with his stomach conditions. - Immunization History Tetanus Immunization Year if Known: 2005 Medications and Allergies Active Medications: Active Medications Al Hydrox/Mg Hydrox/Simethicone (Mag-Al Plus Susp Liq) 30 ml PO Q6H PRN PRN Reason: DYSPEPSIA Al Hydroxide/Mg Hydroxide (Milk Of Magnesia Liq) 30 ml PO Q12H PRN PRN Reason: Mild Constipation Aspirin (Aspirin) 325 mg PO DAILY [facility] Last Admin: 06/26/18 08:41 Dose: 325 mg Baclofen (Lioresal) 10 mg PO Q8HR [facility] Last Admin: 06/26/18 15:10 Dose: 10 mg Bisacodyl (Dulcolax Supp) 10 mg RECTAL DAILY PRN PRN Reason: SEVERE CONSITIPATION Buspirone HCl (Buspar) 10 mg PO DAILY@,15, [facility] Last Admin: 06/26/18 15:10 Dose: 10 mg Hydroxyzine HCl (Atarax) 50 mg PO Q6H PRN PRN Reason: ANXIETY Last Admin: 06/26/18 15:10 Dose: 50 mg Lactulose (Lactulose Liq) 30 ml PO DAILY PRN PRN Reason: SEVERE CONSITIPATION Melatonin (Melatonin) 5 mg PO [facility] Last Admin: 06/25/18 21:08 Dose: 5 mg Nicotine (Habitrol 14 Mg Patch.24 Hr) 1 patch T-DERMAL DAILY PRN PRN Reason: Nicotine craving. Last Admin: 06/26/18 09:05 Dose: 1 patch Pantoprazole Sodium (Protonix) 40 mg PO DAILY [facility] Last Admin: 06/26/18 08:40 Dose: 40 mg Patch Removal (Remove Old Patch) 1 each T-DERMAL DAILY [facility] Last Admin: 06/26/18 11:14 Dose: Not Given Quetiapine Fumarate (Seroquel) 50 mg PO BID@ [facility] Last Admin: 06/26/18 15:10 Dose: 50 mg Quetiapine Fumarate (Seroquel) 150 mg PO [facility] Senna/Docusate Sodium (Katt-Colace) 1 tab PO BID [facility] Last Admin: 06/26/18 08:40 Dose: 1 tab Sennosides (Senokot) 17.2 mg PO Q12H PRN PRN Reason: Moderate Constipation Allergies Allergy/AdvReac Type Severity Reaction Status Date / Time penicillin G Allergy Severe rash Verified 06/01/18 17:39 morphine Allergy Intermediate rash Verified 06/01/18 17:39 Physical Exam Vital signs: Vital Signs 06/26/18 05:50 Temperature 97.2 F L Pulse Rate 63 Respiratory Rate 15 Blood Pressure 107/67 Pulse Oximetry 97 Narrative: GENERAL: This is a well-nourished, well-developed patient, in no apparent distress. SKIN: Warm and dry. HEENT: Normocephalic. Pupils equal round and reactive. Nose without bleeding. Airway patent. NECK: Trachea midline. CARDIOVASCULAR: Regular rate and rhythm without murmurs, gallops, or rubs. RESPIRATORY: Clear to auscultation. GASTROINTESTINAL: Abdomen nondistended. MUSCULOSKELETAL: Extremities without clubbing, cyanosis. Right calf trace edema , no erythema, positive tenderness to palpate. Pulses strong and palpable right lower extremity. Ambulating without assistive devices. NEUROLOGICAL: Awake and alert. Oriented to place, person. No focal neuro deficit. Moves all extremities. Normal speech. Assessment and Plan - Plan Mr. Mills is a 37-year-old male with a medical history significant for pancreatitis, gastritis, anxiety and history of pericarditis who is currently under psychiatric care. Hospital service was consulted due to ongoing right lower extremity calf area pain. Previous ultrasound studies indicated no DVT. Right lower extremity pain -2 separate ultrasound studies shows no evidence of DVT. -We will start patient on naproxen 275 mg twice daily -Continue Protonix, baclofen. Thank you for the consult. We will continue to follow this patient with you.
[2018-06-26] MEDS: Melatonin 5 MG Tablet PO SCH (21:20)
[2018-06-27] MEDS: Baclofen 10 MG Tablet PO SCH ×3 (06:39→21:54)
[2018-06-27] MEDS: Aspirin 325 MG Tablet PO SCH (08:20)
[2018-06-27] MEDS: Senna/Docusate Sodium 8.6/50 MG Tablet PO SCH ×2 (08:20→21:55)
[2018-06-27] MEDS: QUEtiapine 25 MG Tablet PO SCH ×2 (08:37→14:48)
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
--- NOTE | 2018-06-27 14:53 | P.PN ---
Subjective Interval history: Follow-up visit for right leg pain and edema. Patient seen and examined in his room. He is ambulating with minimal limping and CYRUS hose in place to right lower extremity. Patient continues to complain of pain however states that this is been ongoing for several weeks now. States that this began at home when he stepped incorrectly down a step and pain began. He states that he was previously in the psychiatric unit however had to be transferred due to a " heart issue". Patient states that he was told he would get an MRI however feels that this might have been missed in translation due to his transfer back to a different floor. He denies any shortness of breath, cough, fevers, chills , nausea or vomiting. Voices no other acute concerns at the moment. Physical Exam Vital signs: Vital Signs 06/26/18 18:19 06/27/18 06:00 Temperature 98.0 F 97.8 F Pulse Rate 83 63 Respiratory Rate 18 16 Blood Pressure 121/78 119/63 Pulse Oximetry 98 96 Intake & Output 06/26/18 06/27/18 06/27/18 18:59 06:59 18:59 Weight 76.6 kg Narrative: GENERAL: This is a well-nourished, well-developed patient, in no apparent distress. SKIN: Warm and dry. HEENT: Normocephalic. Pupils equal round and reactive. Nose without bleeding. Airway patent. NECK: Trachea midline. CARDIOVASCULAR: Regular rate and rhythm without murmurs, gallops, or rubs. RESPIRATORY: Clear to auscultation. GASTROINTESTINAL: Abdomen nondistended. MUSCULOSKELETAL: Extremities without clubbing, cyanosis. Right calf trace edema , no erythema, positive tenderness to palpate. Pulses strong and palpable right lower extremity. Ambulating without assistive devices. NEUROLOGICAL: Awake and alert. Oriented to place, person. No focal neuro deficit. Moves all extremities. Normal speech. Assessment and Plan - Plan Patient is a 37-year-old male with past medical history of pancreatitis, hx DVT left upper extremity, Meckel's diverticulum, gastritis, anxiety, history of pericarditis who was recently in the psychiatric department 06/20, however was a Hallicat on 06/23 due to elevated heart rate. Patient transferred to medical floor for further evaluation. EKG's suggested pericarditis, his troponin were negative and EKG was also negative. This was thought to be anxiety related. He was discharged back to inpatient psych department on 06/25. [facility] consulted due to ongoing right LE pain and swelling. RLE edema and pain - Following an accident at home per patient - No pitting edema seen, calf muscle tenderness to light palpation - US 06/19 and 06/21 both with no evidence of DVT - Likely musculoskeletal injury -Continue Naproxen, CYRUS hose - Ice pack or heat pad for relief - Ambulating without assistive devices, no further imaging. DVT prophylaxis-ambulation [facility] will sign off, please reconsult if needed. Discussed Condition With: Patient and RN
[2018-06-27] MEDS: Melatonin 5 MG Tablet PO SCH (21:00)
[2018-06-28] MEDS: Baclofen 10 MG Tablet PO SCH (06:25)
[2018-06-28 06:27] VITALS: BP 124/67; PULSE 57; TEMP 97.9; O2SAT 97
[2018-06-28] MEDS: Aspirin 325 MG Tablet PO SCH (09:00)
[2018-06-28] MEDS: Senna/Docusate Sodium 8.6/50 MG Tablet PO SCH (09:00)
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
[2018-06-28] MEDS: QUEtiapine 25 MG Tablet PO SCH (10:25)
--- NOTE | 2018-06-28 13:46 | P.TTN ---
- Patient Problems Problems: 1. Discharge planning 2. Medication compliance 3. Knowledge deficit 4. Lack of coping skills - Progress Toward Goals Provider Present: Dr. Jarett Chappell Provider Input: 06/28/18- Abhishek- anticipated discharge home today, out patient referral needed. 06/25/18: Pt newly re-admission from medical floor ( chest pain examinations reveal no organic origin per chart) pt is resuming his inpt status in psychiatry. Pt poc is to stabilize pt, return pt to his home with spouse when pt is stable and safe. Nurse Input: 06/28/18- Eden- patient anticipated discharge home today Psychiatric Counselors Present: Kathy Salinas [facility] Psychiatric Therapist Input: 06/28/18- Kathy- patient given list of referrals for providers for out patient therapy. Anticipated diaharge home with spouse. Follow up appointment with [facility] to be established. 06/25/18: Kathy to follow- up with [facility] per this pt's progress, it is expected that pt will return to his home with spouse and family. Group Spec/RT/OT/NATHAN Present: JOSE Bunch Group Spec/RT/OT/NATHAN Input: 06/25/18: Pt, per his recent inpt status was attending select groups, pt is newly returned to psychiatry and has not had opportunity to attend groups as yet. Occupational Therapist Input: 06/28/18- Deisy- patient attends groups and engages in projects Additional Input: 06/25/18: Pt is expected to be stabilized, then to return to home with his spouse and family. - Documentation Teaching Recipient: Patient
[2018-06-28 14:37] VITALS: RESP 14
== END 2018-06-28 13:15 | disposition home or self-care (01) ==
LOC: H260 18:01
PROVIDERS: ADMIT Psychiatry & Neurology Psychiatry; ATTEND Psychiatry & Neurology Psychiatry